=== PATIENT | male | born 1945 | race Asian ===

== ENCOUNTER 2017-07-29 01:32 | Emergency (ER) | payer OTHER ==
[2017-07-29 01:55] VITALS: BP 109/70; PULSE 72; TEMP 97.6; BMI 28.7
--- NOTE | 2017-07-29 01:58 | PDOC ---
History of Present Illness - General History Source: Patient, Family Exam Limitations: No Limitations - History of Present Illness Initial Comments: 07/29/17 02:11 Patient is a 72 year old male with pmhx of htn, DM (diet controlled) and recent dx of liver mass( he had staging done today 07/[address] guided biopsy MR) who presents today with neck pain and tightness since tonight. As per daughter the patient started complaining of tightness to the right side of the neck today, shooting like pain. His pain is exacerbated by taking deep breaths and positional movements. He notes mild alleviation with Tylenol. He was started on cipro/flagyl with his first dose being today. He recently returned from [facility] 2 weeks ago. He was evaluated in [facility] for 102 fever and was found to have a liver mass. As per daughter his WBC was 17. He denies any weakness, headache, radiation of the pain to the right arm, radiation of the pain to the back, visual changes, numbness or tingling. He is not on blood thinners All - A PCP - Dr. Hodgson [facility] - Kidney stone in 1999, Lithotripsy 2003 <Bianca Hunter - Last Filed: 07/29/17 03:40> <Swetha Cazares - Last Filed: 08/02/17 09:36> - General Chief Complaint: Headache Stated Complaint: NECK PAIN, BACK PAIN Time Seen by Provider: 07/29/17 01:53 Past History <Bianca Hunter - Last Filed: 07/29/17 03:40> - Past Medical History HTN: Yes Other medical history: Liver mass - Suicide/Smoking/Psychosocial Hx Smoking History: Former smoker Have you smoked in the past 12 months: No Information on smoking cessation initiated: No <Swetha Cazares - Last Filed: 08/02/17 09:36> - Past Medical History Allergies/Adverse Reactions: Allergies Allergy/AdvReac Type Severity Reaction Status Date / Time No Known Allergies Allergy Verified 07/29/17 01:55 Home Medications: Ambulatory Orders Acetaminophen [Tylenol] 650 mg PO 07/29/17 Atenolol [Tenormin] 25 mg PO DAILY 07/29/17 Ciprofloxacin HCl [Cipro] 500 mg PO ASDIR 07/29/17 Flagyl - 500 mg PO ASDIR 07/29/17 Oxycodone HCl [Oxycodone HCl ER] 10 mg PO BID #6 tab.er.12h MDD 2 07/29/17 Review of Systems - Review of Systems Able to Perform ROS?: Yes Comments:: 07/29/17 02:12 CONSTITUTIONAL: Absent: fever, chills, diaphoresis, generalized weakness, malaise, loss of appetite HEENT: Absent: rhinorrhea, nasal congestion, throat pain, throat swelling, difficulty swallowing, mouth swelling, ear pain, eye pain, visual Changes CARDIOVASCULAR: Absent: chest pain, syncope, palpitations, irregular heart rate, lightheadedness , peripheral edema RESPIRATORY: Absent: cough, shortness of breath, dyspnea with exertion, orthopnea, wheezing, stridor, hemoptysis GASTROINTESTINAL: Absent: abdominal pain, abdominal distension, nausea, vomiting, diarrhea, constipation, melena, hematochezia GENITOURINARY: Absent: dysuria, frequency, urgency, hesitancy, hematuria, flank pain, genital pain MUSCULOSKELETAL: Present: right sided neck pain Absent: joint swelling SKIN: Absent: rash, itching, pallor HEMATOLOGIC/IMMUNOLOGIC: Absent: easy bleeding, easy bruising, lymphadenopathy, frequent infections ENDOCRINE: Absent: unexplained weight gain, unexplained weight loss, heat intolerance, cold intolerance NEUROLOGIC: Absent: headache, focal weakness or paresthesias, dizziness, unsteady gait, seizure, mental status changes, bladder or bowel incontinence PSYCHIATRIC: Absent: anxiety, depression, suicidal or homicidal ideation, hallucinations. <Bianca Hunter - Last Filed: 07/29/17 03:40> *Physical Exam - Vital Signs Last Vital Signs Temp Pulse Resp BP Pulse Ox 97.6 F 72 18 109/70 95 07/29/17 01:47 07/29/17 01:47 07/29/17 01:47 07/29/17 01:47 07/29/17 01:47 - Physical Exam Comments: 07/29/17 02:14 GENERAL: Well developed, well nourished. Awake and alert. No acute distress. HEENT: Normocephalic, atraumatic. PERRLA, EOMI. No conjunctival pallor. Sclera are non- icteric. Moist mucous membranes. Oropharynx is clear. NECK: Supple. Full ROM. No JVD. Carotid pulses 2+ and symmetric, without bruits. No thyromegaly. No lymphadenopathy. CARDIOVASCULAR: Regular rate and rhythm. No murmurs, rubs, or gallops. Distal pulses are 2+ and symmetric. PULMONARY: No evidence of respiratory distress. Lungs clear to auscultation bilaterally. No wheezing, rales or rhonchi. ABDOMINAL: +Right tenderness of RUQ, slightly diffusely tender abdomen Soft. Non-distended. No rebound or guarding. No organomegaly. Normoactive bowel sounds. MUSCULOSKELETAL +Right sided neck pain. Normal range of motion at all joints. No bony deformities. No CVA tenderness. EXTREMITIES: No cyanosis. No clubbing. No edema. No calf tenderness. SKIN: Warm and dry. Normal capillary refill. No rashes. No jaundice. NEUROLOGICAL: Alert, awake, appropriate. Cranial nerves 2-12 intact. No deficits to light touch and temperature in face, upper extremities and lower extremities. No motor deficits in the in face, upper extremities and lower extremities. Normoreflexic in the upper and lower extremities. Normal speech. Toes are down-going bilaterally. PSYCHIATRIC: Cooperative. Good eye contact. Appropriate mood and affect. <Bianca Hunter - Last Filed: 07/29/17 03:40> - Vital Signs Last Vital Signs Temp Pulse Resp BP Pulse Ox 97.6 F 72 18 109/70 95 07/29/17 01:47 07/29/17 01:47 07/29/17 01:47 07/29/17 01:47 07/29/17 01:47 <Swetha Cazares - Last Filed: 08/02/17 09:36> ED Treatment Course - LABORATORY CBC & Chemistry Diagram: 07/29/17 02:32 07/29/17 02:32 <Bianca Hunter - Last Filed: 07/29/17 03:40> - LABORATORY CBC & Chemistry Diagram: 07/29/17 02:32 07/29/17 02:32 <Swetha Cazares - Last Filed: 08/02/17 09:36> Medical Decision Making - Medical Decision Making 07/29/17 03:40 THIS IS A PRELIMINARY REPORT FROM [facility] EXAM: CT HEAD without contrast IMAGES: 390 EXAM DATE AND TIME: 2017-07-29 03:12:32 REASON FOR EXAM: Occipital headache COMPARISON: None. FINDINGS: The ventricular system is midline and nondilated. The sulcal pattern is normal for the patient's age. There is no bleed, mass, extra-axial fluid collection or mass effect. No skull fracture or skull lesion is identified. Right maxillary and sphenoid sinuses are nearly completely opacified with dense atrial suggesting a fungal or allergic sinusitis. The visualized mastoid air cells are clear. IMPRESSION No acute intracranial pathology. Suspected fungal or allergic right maxillary and sphenoid sinusitis. THIS DOCUMENT HAS BEEN ELECTRONICALLY SIGNED Cade Cloud MD <Bianca Hunter - Last Filed: 07/29/17 03:40> - Medical Decision Making 07/29/17 01:58 72-year-old male who had staging of liver mass with CT guided MR biopsy at [facility]. . Today, brought in by ambulance this evening for his severe right- sided neck pain. Then after 1 hour in ER he had s.o occipital headache 07/29/17 03:24 PMH HTN 07/29/17 05:13 ct [place] head no acute intracranial pathology I recommended a ct scan if abd/pel to evaluate for bleeding but the pt and family saiid that a POST PROCEDURE CT SCAN WAS already done today -I told them I was also concerned about a possible vertebral dissection and wanted a neck CTA which they refused <Swetha Cazares - Last Filed: 08/02/17 09:36> *DC/Admit/Observation/Transfer - Attestations Scribe Attestion: 07/29/17 02:15 Documentation prepared by FANNY Rhodes, acting as medical assisting program director for Swetha Cazares MD. <Bianca Hunter - Last Filed: 07/29/17 03:40> <Swetha Cazares - Last Filed: 08/02/17 09:36> Diagnosis at time of Disposition: Neck pain - Discharge Dispostion Disposition: HOME Condition at time of disposition: Stable - Prescriptions Prescriptions: Oxycodone HCl [Oxycodone HCl ER] 10 mg PO BID #6 tab.er.12h MDD 2 - Referrals Referrals: Leeanna Elkins MD [Primary Care Provider] - - Patient Instructions Printed Discharge Instructions: DI for Neck Pain Additional Instructions: RETURN TO THE ER IMMEDIATELY FOR WORSENING PAIN, OR IF YOU DEVELOP WEAKNESS, NUMBNESS, SEVERE HEADACHE, OR ANY OTHER CONCERNS. FOLLOW UP WITH YOUR PRIMARY CARE PHYSICIAN SOON POSSIBLE.
[2017-07-29] MEDS ORDERED: oxyCODONE HCL 5 MG TABLET PO ONE (02:14)
[2017-07-29] MEDS ORDERED: oxyCODONE HCL 5 MG TABLET ONE (02:28)
[2017-07-29 02:38] LABS: BASOPHIL 0.4 % (0-2.0); EOSINOPHIL 0.1 % (0-4.5); MCH 31.8 pg (25.7-33.7); MCHC 33.8 g/dl (32.0-35.9); MEAN CELL VOLUME 93.9 fl (80-96); MEAN PLT VOLUME 8.5 fl (7.5-11.1); NEUTROPHILS 89.5 % (42.8-82.8); PLATELET COUNT 202 K/MM3 (134-434); RDW 15.4 % (11.9-15.9); WHITE BLOOD COUNT 18.8 K/mm3 (4.0-10.0)
[2017-07-29 03:14] LABS: ALK PHOS 154 U/L (45-117); ANION GAP 9 (8-16); BILIRUBIN,TOTAL 0.7 mg/dL (0.2-1.0); CALCIUM 8.5 mg/dL (8.5-10.1); CO2 25 mmol/L (21-32); CREATININE 0.8 mg/dL (0.7-1.3); GLUCOSE,RANDOM 147 mg/dL (74-106); SGPT/ALT 24 U/L (12-78)
[2017-07-29 03:15] LABS: SGOT/AST 45 U/L (15-37)
--- NOTE | 2017-07-29 05:19 | PDOC ---
*Physical Exam - Vital Signs Last Vital Signs Temp Pulse Resp BP Pulse Ox 97.6 F 72 18 109/70 95 07/29/17 01:47 07/29/17 01:47 07/29/17 01:47 07/29/17 01:47 07/29/17 01:47 ED Treatment Course - LABORATORY CBC & Chemistry Diagram: 07/29/17 02:32 07/29/17 02:32 - ADDITIONAL ORDERS Additional order review: Laboratory Results 07/29/17 02:32 Sodium 131 L Potassium 4.0 Chloride 97 L Carbon Dioxide 25 Anion Gap 9 BUN 12 Creatinine 0.8 Creat Clearance w eGFR > 60 Random Glucose 147 H Calcium 8.5 Total Bilirubin 0.7 AST 45 H ALT 24 Alkaline Phosphatase 154 H Total Protein 7.0 Albumin 3.0 L 07/29/17 02:32 RBC 3.93 L MCV 93.9 MCHC 33.8 RDW 15.4 MPV 8.5 Neutrophils % 89.5 H Lymphocytes % 5.0 L Monocytes % 5.0 Eosinophils % 0.1 Basophils % 0.4 - Medications Given in the ED: ED Medications Discontinued Medications Generic Name Dose Route Start Last Admin Trade Name Javidq PRN Reason Stop Dose Admin Oxycodone HCl 10 mg 07/29/17 02:14 07/29/17 02:35 Roxicodone - PO 07/29/17 02:15 10 mg ONCE ONE Administration *DC/Admit/Observation/Transfer Diagnosis at time of Disposition: Neck pain - Discharge Dispostion Disposition: HOME Condition at time of disposition: Stable Admit: No - Prescriptions Prescriptions: Oxycodone HCl [Oxycodone HCl ER] 10 mg PO BID #6 tab.er.12h MDD 2 - Referrals Referrals: Leeanna Elkins MD [Primary Care Provider] - - Patient Instructions Printed Discharge Instructions: DI for Neck Pain Additional Instructions: RETURN TO THE ER IMMEDIATELY FOR WORSENING PAIN, OR IF YOU DEVELOP WEAKNESS, NUMBNESS, SEVERE HEADACHE, OR ANY OTHER CONCERNS. FOLLOW UP WITH YOUR PRIMARY CARE PHYSICIAN SOON POSSIBLE. - Post Discharge Activity
[2017-07-29] MEDS ORDERED: morphine CARPU-JECT 2 MG/1 ML DISP.SYRIN IM ONE (05:28)
[2017-07-29] MEDS ORDERED: morphine CARPU-JECT 2 MG/1 ML DISP.SYRIN ONE (05:30)
--- NOTE | 2017-08-06 14:19 | EKG ---
Test Reason : Blood Pressure : / mmHG Vent. Rate : 070 BPM Atrial Rate : 070 BPM P-R Int : 150 ms QRS Dur : 082 ms QT Int : 414 ms P-R-T Axes : 042 -30 035 degrees QTc Int : 447 ms NORMAL SINUS RHYTHM LEFT AXIS DEVIATION ABNORMAL ECG WHEN COMPARED WITH ECG OF 06-JAN-2000 16:42, NO SIGNIFICANT CHANGE WAS FOUND Confirmed by PATRICIA FISH MD ([id number]) on 08/06/2017 2:19:26 PM Referred By: Confirmed By:PATRICIA FISH MD
== END 2017-07-29 05:35 | disposition home or self-care (01) ==
LOC: JER 01:32
PROC: 3E023NZ Introduction of Analgesics, Hypnotics, Sedatives into Muscle, Percutaneous Approach (ICD-10-PCS; principal; 2017-07-29)
DX: I10 Essential (primary) hypertension (principal); E11.9 Type 2 diabetes mellitus without complications; Z87.891 Personal history of nicotine dependence
CPT/HCPCS: 36415; 70450-TC; 80053; 85025; 93005; 93010; 99281-25

== ENCOUNTER 2017-11-29 20:03 | Inpatient (IN) | payer OTHER, MEDICARE ==
[2017-11-29] MEDS ORDERED: SODIUM CHLORIDE 1,000 ML IV STA (20:25)
--- NOTE | 2017-11-29 20:25 | PDOC ---
History of Present Illness - General History Source: Patient, Family Exam Limitations: No Limitations - History of Present Illness Initial Comments: 11/29/17 21:28 The patient is a 72 year old male with a significant past medical history of Cholangiocarcinoma (on bi weekly chemotherapy, last treatment on 11/27/17), HTN and DM who presents to the ED with complaints of abdominal pain and diarrhea for several days. The patient was diagnosed with C-diff and was given flagyl 10 days ago. Patient was then switched to vancomycin PO on Thursday. Patient had an Abdominal and Pelvic CT with contrast yesterday that showed no small bowel obstruction. Since the CT, the patient reports worsening intermittent generalized abdominal pain. He also reports multiple episodes of loose watery stool. Patient also reports a decrease in PO intake associated with present symptoms. Denies melena or hematochezia. Denies nausea or vomiting. Denies chest pain or shortness of breath. Denies dysuria or change in urinary output. Denies any other symptoms. PCP: Dr. Elkins Oncology: Dr. Hong <Sylvia Mcnamara - Last Filed: 11/29/17 23:33> <Swetha Cazares - Last Filed: 11/30/17 02:35> <Elizabeth Hale - Last Filed: 12/02/17 15:13> - General Chief Complaint: Pain, Acute Stated Complaint: EVALUATION Time Seen by Provider: 11/29/17 20:17 Past History <Sylvia Mcnamara - Last Filed: 11/29/17 23:33> - Past Medical History Cancer: Yes COPD: No HTN: Yes Other medical history: C-diff - Surgical History Abdominal Surgery: Yes - Suicide/Smoking/Psychosocial Hx Smoking History: Never smoked Have you smoked in the past 12 months: No Information on smoking cessation initiated: No Hx Alcohol Use: No Drug/Substance Use Hx: No Substance Use Type: None <Swetha Cazares - Last Filed: 11/30/17 02:35> <Elizabeth Hale - Last Filed: 12/02/17 15:13> - Past Medical History Allergies/Adverse Reactions: Allergies Allergy/AdvReac Type Severity Reaction Status Date / Time No Known Allergies Allergy Verified 11/29/17 20:17 Home Medications: Ambulatory Orders Atenolol [Tenormin] 25 mg PO DAILY 07/29/17 Oxycodone HCl [Oxycodone HCl ER] 10 mg PO BID #6 tab.er.12h MDD 2 07/29/17 Pantoprazole Sodium [Protonix] 40 mg PO DAILY 11/29/17 Sodium Chloride [Sodium Chloride 0.9% 1000 ml Infus.bag] 1,000 ml IV ONCE #1 infus.bag 11/30/17 Review of Systems - Review of Systems Able to Perform ROS?: Yes Comments:: 11/29/17 21:28 CONSTITUTIONAL: + decreased PO intake Absent: fever, chills, diaphoresis, generalized weakness, malaise, loss of appetite HEENT: Absent: rhinorrhea, nasal congestion, throat pain, throat swelling, difficulty swallowing, mouth swelling, ear pain, eye pain, visual Changes CARDIOVASCULAR: Absent: chest pain, syncope, palpitations, irregular heart rate, lightheadedness , peripheral edema RESPIRATORY: Absent: cough, shortness of breath, dyspnea with exertion, orthopnea, wheezing, stridor, hemoptysis GASTROINTESTINAL: + abdominal pain, diarrhea Absent: abdominal distension, nausea, vomiting, constipation, melena, hematochezia GENITOURINARY: Absent: dysuria, frequency, urgency, hesitancy, hematuria, flank pain, genital pain MUSCULOSKELETAL: Absent: myalgia, arthralgia, joint swelling SKIN: Absent: rash, itching, pallor HEMATOLOGIC/IMMUNOLOGIC: Absent: easy bleeding, easy bruising, lymphadenopathy, frequent infections ENDOCRINE: Absent: unexplained weight gain, unexplained weight loss, heat intolerance, cold intolerance NEUROLOGIC: Absent: headache, focal weakness or paresthesias, dizziness, unsteady gait, seizure, mental status changes, bladder or bowel incontinence PSYCHIATRIC: Absent: anxiety, depression, suicidal or homicidal ideation, hallucinations. All Other Systems: Reviewed and Negative <Sylvia Mcnamara - Last Filed: 11/29/17 23:33> *Physical Exam - Vital Signs Last Vital Signs Temp Pulse Resp BP Pulse Ox 98.6 F 112 H 20 117/78 98 11/29/17 20:11 11/29/17 20:11 11/29/17 20:11 11/29/17 20:11 11/29/17 20:11 - Physical Exam Comments: 11/29/17 21:28 GENERAL: Well developed, well nourished. Awake and alert. No acute distress. HEENT:+ dry mucous membranes Normocephalic, atraumatic. PERRLA, EOMI. No conjunctival pallor. Sclera are non- icteric. Oropharynx is clear. NECK: Supple. Full ROM. No JVD. Carotid pulses 2+ and symmetric, without bruits. No thyromegaly. NCo lymphadenopathy. CARDIOVASCULAR: + tachycardic Regular rhythm. No murmurs, rubs, or gallops. Distal pulses are 2+ and symmetric. PULMONARY: No evidence of respiratory distress. Lungs clear to auscultation bilaterally. No wheezing, rales or rhonchi. ABDOMINAL:+ slightly turbulent belly, with diffuse tenderness, bloating Soft. No rebound or guarding. No organomegaly. Normoactive bowel sounds. MUSCULOSKELETAL Normal range of motion at all joints. No bony deformities or tenderness. No CVA tenderness. EXTREMITIES: No cyanosis. No clubbing. No edema. No calf tenderness. SKIN: Warm and dry. Normal capillary refill. No rashes. No jaundice. NEUROLOGICAL: Alert, awake, appropriate. Cranial nerves 2-12 intact. No deficits to light touch and temperature in face, upper extremities and lower extremities. No motor deficits in the in face, upper extremities and lower extremities. Normoreflexic in the upper and lower extremities. Normal speech. Toes are down- going bilaterally. Gait is normal without ataxia. PSYCHIATRIC: Cooperative. Good eye contact. Appropriate mood and affect. <Sylvia Mcnamara - Last Filed: 11/29/17 23:33> - Vital Signs Last Vital Signs Temp Pulse Resp BP Pulse Ox 98.6 F 112 H 20 117/78 98 11/29/17 20:11 11/29/17 20:11 11/29/17 20:11 11/29/17 20:11 11/29/17 20:11 <Swetha Cazares - Last Filed: 11/30/17 02:35> - Vital Signs Last Vital Signs Temp Pulse Resp BP Pulse Ox 98.6 F 112 H 20 117/78 98 11/29/17 20:11 11/29/17 20:11 11/29/17 20:11 11/29/17 20:11 11/29/17 20:11 <Elizabeth Hale - Last Filed: 12/02/17 15:13> ED Treatment Course - LABORATORY CBC & Chemistry Diagram: 11/29/17 22:36 11/29/17 22:14 - Medications Given in the ED: ED Medications Discontinued Medications Generic Name Dose Route Start Last Admin Trade Name Freq PRN Reason Stop Dose Admin Hydromorphone HCl 0.5 mg 11/29/17 21:13 11/29/17 21:14 Dilaudid Injection - IVPUSH 11/29/17 21:14 0.5 mg NOW ONE Administration Sodium Chloride 1,000 mls @ 1,000 mls/hr 11/29/17 20:25 11/29/17 21:13 Normal Saline - IV 11/29/17 21:24 1,000 mls/hr ASDIR STA Administration <Sylvia Mcnamara - Last Filed: 11/29/17 23:33> - LABORATORY CBC & Chemistry Diagram: 11/29/17 22:36 11/29/17 22:14 <Swetha Cazares - Last Filed: 11/30/17 02:35> - LABORATORY CBC & Chemistry Diagram: 12/02/17 06:00 12/02/17 06:00 - ADDITIONAL ORDERS Additional order review: Laboratory Results 11/29/17 22:14 Sodium 133 L Potassium 4.9 D Chloride 101 Carbon Dioxide 23 Anion Gap 9 BUN 6 L D Creatinine 0.5 L D Creat Clearance w eGFR > 60 Random Glucose 110 H D Calcium 7.2 L Total Bilirubin 1.2 H D AST 89 H D ALT 39 D Alkaline Phosphatase 156 H Total Protein 6.2 L Albumin 2.3 L D Lipase 894 H 11/29/17 21:45 Influenza Types A,B Antigen (CLARIBEL) - Final Nasopharyngeal Swab - Final 11/29/17 22:36 RBC 3.92 L MCV 93.3 MCHC 33.0 RDW 22.4 H D MPV 7.9 Neutrophils % 64.7 D Lymphocytes % 28.7 D Monocytes % 3.9 Eosinophils % 2.1 D Basophils % 0.6 - Medications Given in the ED: ED Medications Discontinued Medications Generic Name Dose Route Start Last Admin Trade Name Freq PRN Reason Stop Dose Admin Hydromorphone HCl 0.5 mg 11/29/17 21:13 11/29/17 21:14 Dilaudid Injection - IVPUSH 11/29/17 21:14 0.5 mg NOW ONE Administration Hydromorphone HCl 2 mg 11/30/17 06:30 11/30/17 06:40 Dilaudid Injection - IVPUSH 11/30/17 06:31 2 mg ONCE ONE Administration Sodium Chloride 1,000 mls @ 1,000 mls/hr 11/29/17 20:25 11/29/17 21:13 Normal Saline - IV 11/29/17 21:24 1,000 mls/hr ASDIR STA Administration Sodium Chloride 1,000 ml 11/30/17 06:42 11/30/17 06:44 Normal Saline - IV 11/30/17 06:43 1,000 ml NOW ONE Administration <Elizabeth Hale - Last Filed: 12/02/17 15:13> Medical Decision Making - Medical Decision Making 11/29/17 23:28 Case discussed with the covering fellow for Dr. Hong at 23:20. 11/29/17 23:[address] Elkins at 23:33. <Sylvia Mcnamara - Last Filed: 11/29/17 23:33> - Medical Decision Making 11/30/17 02:35 72-year-old male who is being treated for cholangiocarcinoma has [facility] brought in by family because of increased stooling. Past medical history significant for C. difficile colitis and had been treated with Flagyl with poor results so last Thursday he was placed on vancomycin -He had his chemotherapy on Thursday He had CAT scan of the abdomen and pelvis with and without contrast yesterday. I spoke to the fellow covering for and a CAT scan was read by the radiologist is as long as being consistent with colitis. There is no evidence of small bowel obstruction, no abscesses and no free air and no pancreatitis I spoke to the patient's PCP and the plan is to observe the pt and repeat his lab work at . -if he has increasing pain or worsening stools .he can be admitted If he has no worsening symptoms ,he will be discharged and follow up with his specialist at [facility] <Swetha Cazares - Last Filed: 11/30/17 02:35> - Medical Decision Making 12/02/17 15:12 Case d/w Dr. Hodgson and she is in agreement that pt should remain in the hospital for admission, as he continues with intractable pain and he remains tachycardic despite IV hydration. Pt will be given a dose of pain meds and repeat saline hydration. He is in for consults with hematology as well. <Elizabeth Hale - Last Filed: 12/02/17 15:13> *DC/Admit/Observation/Transfer - Attestations Scribe Attestion: 11/29/17 21:28 Documentation prepared by Sylvia Mcnamara, acting as medical records coder for Swetha Cazares MD <Sylvia Mcnamara - Last Filed: 11/29/17 23:33> - Discharge Dispostion Admit: Yes <Swetha Cazares - Last Filed: 11/30/17 02:35> - Discharge Dispostion Admit: Yes <Elizabeth Hale - Last Filed: 12/02/17 15:13> Diagnosis at time of Disposition: Colitis, Cholangiocarcinoma, Diarrhea, Dehydration
[2017-11-29] MEDS ORDERED: HYDROmorphone HCL CARPU-JECT 2 MG/1 ML DISP.SYRIN ONE (21:01)
[2017-11-29] MEDS ORDERED: HYDROmorphone HCL CARPU-JECT 1 MG/1 ML DISP.SYRIN IVPUSH ONE (21:13)
[2017-11-29 22:44] LABS: ALBUMIN 2.3 g/dl (3.4-5.0); ANION GAP 9 (8-16); BILIRUBIN,TOTAL 1.2 mg/dL (0.2-1.0); BLOOD UREA NITROGEN 6 mg/dL (7-18); CALCIUM 7.2 mg/dL (8.5-10.1); CHLORIDE 101 mmol/L (98-107); CO2 23 mmol/L (21-32); CREATININE 0.5 mg/dL (0.7-1.3); GLUCOSE,RANDOM 110 mg/dL (74-106); SGPT/ALT 39 U/L (12-78); SODIUM 133 mmol/L (136-145); TOT PROT 6.2 g/dl (6.4-8.2)
[2017-11-29 22:45] LABS: ALK PHOS 156 U/L (45-117); LIPASE 894 U/L (73-393)
[2017-11-29 22:46] LABS: POTASSIUM 4.9 mmol/L (3.5-5.1); SGOT/AST 89 U/L (15-37)
[2017-11-29 22:48] LABS: BASO % 0.6 % (0-2.0); EOS % 2.1 % (0-4.5); HEMATOCRIT 36.6 % (35.4-49); HEMOGLOBIN 12.1 GM/dL (11.7-16.9); LYMPH % 28.7 % (8-40); MCH 30.8 pg (25.7-33.7); MEAN CELL VOLUME 93.3 fl (80-96); MEAN PLT VOLUME 7.9 fl (7.5-11.1); MONO % 3.9 % (3.8-10.2); NEUT % 64.7 % (42.8-82.8); PLATELET COUNT 239 K/MM3 (134-434); RBC 3.92 M/mm3 (4.00-5.60); RDW 22.4 % (11.9-15.9)
[2017-11-29 22:51] LABS: ADD RBC MORPHOLOGY YES
[2017-11-29 23:22] LABS: ANISOCYTOSIS 2+; OVALOCYTE FEW; PLATELET ESTIMATE ADEQUATE
[2017-11-30] MEDS ORDERED: HYDROmorphone HCL CARPU-JECT 2 MG/1 ML DISP.SYRIN ONE ×2 (06:28→10:51)
[2017-11-30] MEDS ORDERED: HYDROmorphone HCL CARPU-JECT 2 MG/1 ML DISP.SYRIN IVPUSH ONE (06:30)
[2017-11-30] MEDS ORDERED: SODIUM CHLORIDE 0.9% 1000 ML INFUS.BAG IV ONE (06:42)
[2017-11-30 08:10] LABS: URINE APPEARANCE CLEAR; URINE BILIRUBIN NEGATIVE (NEGATIVE); URINE BLOOD NEGATIVE (NEGATIVE); URINE COLOR YELLOW; URINE GLUCOSE (UA) NEGATIVE (NEGATIVE); URINE KETONE NEGATIVE (NEGATIVE); URINE LEUK ESTERASE NEGATIVE (NEGATIVE); URINE NITRITE NEGATIVE (NEGATIVE); URINE PROTEIN NEGATIVE (NEGATIVE); URINE UROBILINOGEN NEGATIVE mg/dL (0.2-1.0)
[2017-11-30 08:14] LABS: BASO % 0.5 % (0-2.0); EOS % 3.4 % (0-4.5); HEMATOCRIT 34.1 % (35.4-49); HEMOGLOBIN 11.1 GM/dL (11.7-16.9); LYMPH % 29.8 % (8-40); MCH 30.6 pg (25.7-33.7); MCHC 32.6 g/dl (32.0-35.9); MEAN CELL VOLUME 93.8 fl (80-96); MEAN PLT VOLUME 7.9 fl (7.5-11.1); MONO % 6.8 % (3.8-10.2); NEUT % 59.5 % (42.8-82.8); PLATELET COUNT 230 K/MM3 (134-434); RBC 3.63 M/mm3 (4.00-5.60); RDW 23.2 % (11.9-15.9); WHITE BLOOD COUNT 3.2 K/mm3 (4.0-10.0)
[2017-11-30 08:27] LABS: ANION GAP 6 (8-16); BLOOD UREA NITROGEN 5 mg/dL (7-18); CALCIUM 7.2 mg/dL (8.5-10.1); CHLORIDE 103 mmol/L (98-107); CO2 27 mmol/L (21-32); CREATININE 0.4 mg/dL (0.7-1.3); GLUCOSE,RANDOM 90 mg/dL (74-106); POTASSIUM 4.4 mmol/L (3.5-5.1); SGOT/AST 44 U/L (15-37); SGPT/ALT 30 U/L (12-78); SODIUM 136 mmol/L (136-145)
[2017-11-30 08:29] LABS: ALK PHOS 123 U/L (45-117); BILIRUBIN,TOTAL 1.2 mg/dL (0.2-1.0); TOT PROT 5.2 g/dl (6.4-8.2)
[2017-11-30] MEDS ORDERED: SODIUM CHLORIDE 1,000 ML IV STA (10:03)
--- NOTE | 2017-11-30 10:03 | PN ---
Progress Note, Physician Chief Complaint: Pt lying in bed pain improved diarrhoea improved GI consult pending - Current Medication List Current Medications: Active Medications Atenolol (Tenormin -) 25 mg PO DAILY DULCE MARIA Vancomycin HCl (Vancomycin Oral Solution) 125 mg PO Q6HPO DULCE MARIA - Objective Vital Signs: Vital Signs Temperature 98.8 F 11/30/17 06:00 Pulse Rate 128 H 11/30/17 06:00 Respiratory Rate 18 11/30/17 06:00 Blood Pressure 116/84 11/30/17 06:00 O2 Sat by Pulse Oximetry (%) 98 11/30/17 06:00 Constitutional: Yes: No Distress Eyes: Yes: Conjunctiva Clear HENT: Yes: Normocephalic Neck: Yes: Supple Cardiovascular: Yes: Regular Rate and Rhythm Respiratory: Yes: Regular, CTA Bilaterally Gastrointestinal: Yes: Normal Bowel Sounds, Distention Genitourinary: Yes: WNL Musculoskeletal: Yes: WNL Extremities: Yes: WNL Edema: No Peripheral Pulses WNL: Yes Neurological: Yes: WNL, Alert ...Motor Strength: WNL Psychiatric: Yes: WNL Labs: CBC, BMP 11/30/17 07:42 11/30/17 07:42 - ....Imaging Chest X-ray: Report Reviewed Assessment/Plan Colitis,abdominal pain C diff positive Cholangiocarcinoma on CT HTN PLAN Continue vancomycin Continue IV fluid and pain meds GI cosult pending Monitor CBC
[2017-11-30] MEDS: ATENOLOL 25 MG TABLET (FP) PO SCH ×2 (10:38→10:49)
[2017-11-30] MEDS ORDERED: ATENOLOL 25 MG TABLET (FP) ONE (10:38)
[2017-11-30] MEDS: HYDROmorphone HCL CARPU-JECT 2 MG/1 ML DISP.SYRIN IVPUSH PRN (10:52)
--- NOTE | 2017-11-30 11:29 | HP ---
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 The patient was diagnosed with Clostridium difficile and was given Flagyl 10 days ago. The patient was then switched to vancomycin p.o. on Thursday. The patient had abdominopelvic CT with contrast yesterday and showed no small bowel obstruction. Since CT, the patient reports worsening intermittent generalized abdominal pain. He also reports multiple episodes of loose, watery stool. The patient does report the decreased p.o. intake associated with the symptoms. The patient denies any melena or hematochezia. Denies nausea or vomiting. No chest pain, no shortness of breath, no dysuria, no changes in urinary output. PAST MEDICAL HISTORY: Significant for cholangiocarcinoma, hypertension. PAST SURGICAL HISTORY: The patient had abdominal surgery and had his gallbladder removed. MEDICATIONS: The patient is on atenolol 25 mg p.o. daily, Oxycodone Hydrochloride 10 mg p.o. b.i.d. Protonix 40 mg p.o. daily, and IV fluid. ALLERGIES: No known drug allergies. SOCIAL HISTORY: Lives with the family. Never smoked. No history of alcohol. No drug history. REVIEW OF SYSTEMS: Constitutional: The patient had decreased p.o. intake. General Symptoms: No fever, no chills, no generalized weakness. Head and Neck: No nasal congestion. No throat pain. Cardiovascular: No chest pain, no syncope, no palpitations. Gastrointestinal: Abdominal pain and diarrhea. Renal: No urinary symptoms. Musculoskeletal: No myalgias or arthralgias. Hematologic: No easy bruising or easy bleeding. Neurologic: No headache, no focal weakness or paresthesias. Psychiatric: No anxiety, no depression. PHYSICAL EXAMINATION: Vital Signs: Patient's emergency room temperature 98.6, pulse 112, respirations 28, blood pressure 117/78, pulse 98 per minute. General: Patient well developed, well nourished, awake, alert in no acute distress. HEENT: Slight dehydration. Normocephalic. Pupils equal, round, and reactive to light. Extraocular movements normal. No jaundice. No scleral icterus. Head normal. Neck: Normal. Supple. No JVD. Cardiovascular: Tachycardia present. First and second sound normal. No murmur. Abdomen: Slight tenderness, diffuse tenderness and bloating present. No rebound tenderness, guarding, or rigidity. No mass palpable. Scar on the left side of the abdomen in the midline. Musculoskeletal: Full range of movement. Skin: Warm and dry. Neurologic: Awake and alert. Cranial nerves 2-12 normal. No motor or sensory deficit. Normal speech. Gait is normal. Psychiatric: The patient is cooperative. LABORATORIES: WBC 3, hemoglobin 12.1, hematocrit 36.6, platelets 239. Sodium 133, potassium 4.9, chloride 101, bicarbonate 23, BUN 6, creatinine 0.5. Sugar 110, calcium 7.2, alkaline phosphatase 156. AST 89, ALT 39, total protein 6.2, lipase 8.94. Influenza screening negative. Chest x-ray normal. The patient was given IV fluid and morphine in the ER. Dilaudid injection in the ER. In summary, this is a 72-year-old male with a history of cholangiocarcinoma treatment getting from [facility] and is on chemotherapy. Patient diagnosed with Clostridium difficile colitis and has been treated with Flagyl with poor results so switched to vancomycin. Patient had last chemotherapy on Thursday. Had CAT scan of the abdomen and pelvis with and without contrast done on Thursday. According to the ER note, the CAT scan results were discussed with the covering fellow at [facility], and the diagnosis was colitis, but there was no evidence of any small bowel obstruction. No abscess, no free air, no pancreatitis. The patient was kept for observation with the diagnosis of colitis. Vancomycin 125 mg p.o., started IV fluid, and home medications resumed. GI consult called. PCPC ordered. Patient stable. NADJA HADLEY M.D. /[id number]
[2017-11-30 11:38] LABS: MAGNESIUM 1.3 mg/dL (1.8-2.4)
[2017-11-30] MEDS: VANCOMYCIN 250 MG/5 ML ORAL SOLUTION PO SCH ×4 (12:06→23:58)
--- NOTE | 2017-11-30 13:02 | EKG ---
Test Reason : Blood Pressure : / mmHG Vent. Rate : 109 BPM Atrial Rate : 109 BPM P-R Int : 186 ms QRS Dur : 080 ms QT Int : 324 ms P-R-T Axes : 043 -34 057 degrees QTc Int : 436 ms SINUS TACHYCARDIA LEFT AXIS DEVIATION ABNORMAL ECG WHEN COMPARED WITH ECG OF 29-JUL-2017 01:51, VENT. RATE HAS INCREASED BY 39 BPM Confirmed by HERMINIA AREVALO MD ([id number]) on 11/30/2017 1:02:20 PM Referred By: Confirmed By:HERMINIA AREVALO MD
--- NOTE | 2017-11-30 13:49 | CON.GI ---
Consult Consult Specialty:: GI: Dr. Mitchell for Dr. Fung Referred by:: Dr. Elkins Reason for Consultation:: Diarrhea - History of Present Illness Chief Complaint: I have been having diarrhea History of Present Illness: 72M admitted through [facility] for evaluation of diarrhea. Per family ( and daughter) Mr. Garcia has been having diarrhea for three weeks described as watery and 1-2 BM's in AM and 1-2 BM's at night. There was no associated rectal bleeding or blood diarrhea. His daughter, who is a PA at [employer], ordered stool C. Diff (toxin positive per daughter) and he was given Rx w/ flagyl for 14 days. The diarrhea persisted, however and never really improved. He was started on PO vanco by oncologist 11/25. Diarrhea persisted but stool became more formed. He had a CT scan of the C/A/P at [facility] this past thursday per his daughter and afterwards he developed midline abdominal pain. CT scan reports are not available here for review as this was performed at [facility]. His daughter explains that it showed "colitis". Mr. Garcia has a history of cholangiocarcinoma and is being treated with ? direct chemo to the tumor via implanted pump plus IV chemotherapy. he received IV chemotherapy 11/27. Prior to this episode of diarrhea there has been no chronic GI complaints. he had a colonoscopy in [address] Fung that was "OK". per his . There is no family history of IBD or colon cancer. He currently denies abdominal pain and stool is becoming more formed. - History Source History Provided By: Patient - Past Medical History Cardio/Vascular: Yes: HTN Gastrointestinal: Yes: Cancer (Cholangiocarcinoma) - Past Surgical History Additional Surgical History: Placement of an abdominal wall chemo pump - Alcohol/Substance Use Hx Alcohol Use: No History of Substance Use: reports: None - Smoking History Smoking history: Never smoked Have you smoked in the past 12 months: No - Social History Usual Living Arrangement: With Spouse ADL: Independent Occupation: Disabled Place of : Other ([place]) History of Recent Travel: No Home Medications - Allergies Allergies/Adverse Reactions: Allergies Allergy/AdvReac Type Severity Reaction Status Date / Time No Known Allergies Allergy Verified 11/29/17 20:17 - Home Medications Home Medications: Ambulatory Orders Atenolol [Tenormin] 25 mg PO DAILY 07/29/17 Oxycodone HCl [Oxycodone HCl ER] 10 mg PO BID #6 tab.er.12h MDD 2 07/29/17 Pantoprazole Sodium [Protonix] 40 mg PO DAILY 11/29/17 Sodium Chloride [Sodium Chloride 0.9% 1000 ml Infus.bag] 1,000 ml IV ONCE #1 infus.bag 11/30/17 Family Disease History - Family Disease History Family Disease History: Other: Father ( 86: Dementia, porostate ca), Mother (: 99), Brother (: lung ca), Sister (: BCA), Son (1, healthy), Daughter (2, healthy) Review of Systems - Review of Systems Constitutional: reports: Fever (100.7 described by ). denies: Chills Cardiovascular: denies: Chest Pain, Shortness of Breath Respiratory: denies: Cough Gastrointestinal: reports: Abdominal Pain (resolved). denies: Bloating, Nausea , Rectal Bleeding, Vomiting Physical Exam-GI Vital Signs: Vital Signs Temperature 97.6 F 11/30/17 13:30 Pulse Rate 116 11/30/17 13:30 Respiratory Rate 16 11/30/17 13:30 Blood Pressure 147/85 11/30/17 13:30 O2 Sat by Pulse Oximetry (%) 100% RA 11/30/17 13:30 Constitutional: No: Calm Eyes: No: Sclera Icterus Cardiovascular: Yes: Tachycardia (regular rhythm) Respiratory: Yes: CTA Bilaterally Gastrointestinal Inspection: No: Distention ...Auscultate: Yes: Normoactive Bowel Sounds ...Palpate: No: Guarding, Hepatomegaly, Splenomegaly, Tenderness, Tenderness, Rebound ...Percussion: No: Tympanitic Edema: No (No LE edema) Neurological: Yes: Alert, Oriented Labs: CBC, BMP 11/30/17 07:42 11/30/17 07:42 Hepatic Panel Total Bilirubin 1.2 mg/dL (0.2-1.0) H 11/30/17 07:42 AST 44 U/L (15-37) H D 11/30/17 07:42 ALT 30 U/L (12-78) D 11/30/17 07:42 Alkaline Phosphatase 123 U/L (45-117) H D 11/30/17 07:42 Albumin 2.0 g/dl (3.4-5.0) L 11/30/17 07:42 Laboratory Tests 11/29/17 22:14 Lipase 894 H Problem List - Problems (1) Diarrhea Assessment/Plan: 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 Diff toxin + specimen sent from [facility] when diarrhea began to persist Clinically improved by description of more formed / less frequent BM's Advise: Continuing Vanco PO 125mg PO q 6 hrs Would not add probiotic in Mr. Garcia's case given his immunocompromised status Would avoid PPI therapy given its association w/ increased risk of CDAD. Protonix was on his home meds His oncologist's office was called to obtain reports from recent CT scan of the C/A/P. Awaiting fax Consider ID evaluation If worsening abdominal pain, diarrhea, repeat CT scan of the abdomen and pelvis with PO contrast Full liquid diet Code(s): R19.7 - DIARRHEA, UNSPECIFIED (2) Tachycardia Assessment/Plan: Advised Mr. Garcia's nurse Jordan Jason regarding this finding so that PMD can be made aware NS @ 125 cc/hr started Code(s): R00.0 - TACHYCARDIA, UNSPECIFIED (3) Cholangiocarcinoma Assessment/Plan: Being treated at [facility] Awaiting CT scan C/A/P report If rising LFTs consistent with obstructive pattern, consider transfer to [facility] for further evaluation Code(s): C22.1 - INTRAHEPATIC BILE DUCT CARCINOMA
[2017-11-30] MEDS ORDERED: ACETAMINOPHEN 325 MG TABLET (FP) PO ONE (14:56)
[2017-11-30] MEDS ORDERED: ACETAMINOPHEN 325 MG TABLET (FP) ONE (14:57)
--- NOTE | 2017-11-30 15:51 | PN ---
Progress Note (short form) - Note Progress Note: CT scan report obtained from Dr. Hong's office. It was a Oral and IV contrast study C/A/P from 11/28/17. decreased size in intrahepatic mass 12.7cm x 7.3cm w/ decreased compression of the portal veins and encasement of the middle hepatic lobe. also with persistent small tumoral thrombus invading left median superior branch of let. portal vein. no biliary ductla dilatation and patient s/ p cholecystectomy. Also, no mention of colitis although new wall thickening of the terminal ileum with surrounding fat stranding. The left abdominal wall hepatic arterial infusion pump seems to be a hepatic arterial infusion pump. C. Diff still in differential however inflammatory process with ? involvement of ileum. Stool culture, O&P Being evaluated by ID given temp spike to 101 Problem List - Problems (1) Diarrhea Code(s): R19.7 - DIARRHEA, UNSPECIFIED (2) Tachycardia Code(s): R00.0 - TACHYCARDIA, UNSPECIFIED (3) Cholangiocarcinoma Code(s): C22.1 - INTRAHEPATIC BILE DUCT CARCINOMA
[2017-11-30 16:05] VITALS: BMI 26.9
--- NOTE | 2017-11-30 16:41 | PN ---
Progress Note (short form) - Note Progress Note: Had d/w Dr. Rahman re: repeating CT scan in setting of fever spike and upper abdominal pain to assess for alternate etiologies of abdominal pain (given the reading of the [facility] CT scan that did not describe an obvious colitis). Had d/w family re: repeat CT scan. Advised that PO and IV contrast would give us a clearer picture of the bowel as well as solid organs / portal vein thrombus. They would like to discuss this as a family and come up with a decision. They were concerned re: obtaining IV access. There is now discussion of transfer to [facility] under care of her oncologist Problem List - Problems (1) Diarrhea Code(s): R19.7 - DIARRHEA, UNSPECIFIED (2) Tachycardia Code(s): R00.0 - TACHYCARDIA, UNSPECIFIED (3) Cholangiocarcinoma Code(s): C22.1 - INTRAHEPATIC BILE DUCT CARCINOMA
--- NOTE | 2017-11-30 16:44 | CON.ID ---
Consult Consult Specialty:: infectious disease Referred by:: dr david - History of Present Illness Chief Complaint: abdominal pain History of Present Illness: 72 year old man with cholangiocarcinoma diagnosed in fall 2016, s/p cholycystecomy and pump placement Sep 07 at [place]. He is getting monthly infusions via the pump and biweekly infusions via the port 3 weeks ago he developed watery nonbloody diarrhea- his daughter checked his stools which were positive of cdiff toxin and he took flagyl for 10 days 11/15 to 11/25- he was switched to po vancomycin at that point on Thursday he had his biweekly chemotherapy, on Thursday he went for ct scan of the abd /pelvis and developed watery diarrhea and cramps after the procedure he felt very weak he had no appetite he had a one time temp of 100.1 no cough/no sore throat/no uri symptoms no sick contacts no nausea or vomiting, no dysuria no chest pain he developed pain in the midepigastric/subxiphoid area and cramps along with the diarrhea and came to the ed yesterday today he had fever to 101 wth tachycardia- no chills or rigors, his diarrhea today has markedly improved but his midepigastric discomfort persists of note he was treated with levaquin for 2 weeks in September after his gall bladder surgery he normally has 3 formed bms daily- now 4-5 loose watery ones he was not taking any pain meds but since Thursday has been taking oxycodone for abdominal cramps and pain - History Source History Provided By: Patient, Significant Other, Medical Record Limitations to Obtaining History: No Limitations - Past Medical History Cardio/Vascular: Yes: HTN Gastrointestinal: Yes: Cancer (Cholangiocarcinoma) - Past Surgical History Past Surgical History: Yes: Cholecystectomy (pump placement at time of cholycystectomy) Additional Surgical History: Placement of an abdominal wall chemo pump - Alcohol/Substance Use Hx Alcohol Use: No History of Substance Use: reports: None - Smoking History Smoking history: Never smoked Have you smoked in the past 12 months: No - Social History Usual Living Arrangement: With Spouse ADL: Independent Occupation: Disabled Place of : Other ([place]) Came to [place] (year): 1988 History of Recent Travel: No Home Medications - Allergies Allergies/Adverse Reactions: Allergies Allergy/AdvReac Type Severity Reaction Status Date / Time No Known Allergies Allergy Verified 11/29/17 20:17 - Home Medications Home Medications: Ambulatory Orders Atenolol [Tenormin] 25 mg PO DAILY 07/29/17 Oxycodone HCl [Oxycodone HCl ER] 10 mg PO BID #6 tab.er.12h MDD 2 07/29/17 Pantoprazole Sodium [Protonix] 40 mg PO DAILY 11/29/17 Sodium Chloride [Sodium Chloride 0.9% 1000 ml Infus.bag] 1,000 ml IV ONCE #1 infus.bag 11/30/17 Family Disease History - Family Disease History Family Disease History: Other: Father ( 86: Dementia, porostate ca), Mother (: 99), Brother (: lung ca), Sister (: BCA), Son (1, healthy), Daughter (2, healthy) Review of Systems - Review of Systems Constitutional: reports: Weakness Eyes: reports: No Symptoms HENT: reports: No Symptoms. denies: Difficult Swallowing, Throat Pain Neck: reports: No Symptoms Cardiovascular: reports: No Symptoms. denies: Chest Pain Respiratory: reports: No Symptoms. denies: Cough, SOB Gastrointestinal: reports: Abdominal Pain, Diarrhea. denies: Nausea, Rectal Bleeding, Vomiting, Vomiting Blood Genitourinary: reports: No Symptoms. denies: Burning, Discharge, Dysuria, Flank Pain Musculoskeletal: reports: No Symptoms Integumentary: reports: No Symptoms Neurological: reports: No Symptoms Endocrine: reports: No Symptoms Physical Exam Vital Signs: Vital Signs Temperature 101.0 F H 11/30/17 14:38 Pulse Rate 122 H 11/30/17 14:21 Respiratory Rate 16 11/30/17 14:21 Blood Pressure 116/66 11/30/17 14:21 O2 Sat by Pulse Oximetry (%) 98 11/30/17 14:21 Constitutional: Yes: No Distress, Calm, Thin Eyes: Yes: Conjunctiva Clear HENT: Yes: Atraumatic, Normocephalic. No: Pharyngeal Erythema, Rhinnorhea, Thrush, Tonsillar Exudate Neck: Yes: Supple, Trachea Midline. No: Lymphadenopathy Cardiovascular: Yes: Regular Rate and Rhythm, Tachycardia Respiratory: Yes: Regular, CTA Bilaterally Gastrointestinal: Yes: Normal Bowel Sounds, Soft, Abdomen, Obese, Hyperactive Bowel Sounds, Tenderness, Epigastrium, Other (+mass (pump) LLQ) ...Rectal Exam: Yes: Deferred Renal/: Yes: WNL. No: CVA Tenderness - Left, CVA Tenderness - Right, Hinson Present Musculoskeletal: Yes: WNL Extremities: Yes: WNL Edema: No Labs: CBC, BMP 11/30/17 07:42 11/30/17 07:42 ANC 1900 influenza negative blood cultures pending cdiff pending UA negative Imaging - Results Chest X-ray: Report Reviewed, Image Reviewed Problem List - Problems (1) Fever Code(s): R50.9 - FEVER, UNSPECIFIED (2) Colitis Code(s): K52.9 - NONINFECTIVE GASTROENTERITIS AND COLITIS, UNSPECIFIED (3) Cholangiocarcinoma Code(s): C22.1 - INTRAHEPATIC BILE DUCT CARCINOMA Assessment/Plan 72 year old man with cholangiocarcinoma s/p chemo on Thursday with abdominal pain and fever he has a history of recent cdiff-treated with po flagyl and then po vancomycin suspect his diarrhea Thursday may have been due to oral contrast as it has markedly improved today source of fever is unclear-he is not neutropenic ANC is 1900 UA is negative and he has no pulmonary complaints abdominal pain is new would obtain blood cultures and start broad spectrum antibiotics given his tachycardia-vancomycin and zosyn concern for GI source would repeat ct of abd/pelvis- this was discussed with GI, the family and the PMD would continue aggressive iv fluids would continue treatment for cdiff with po vancomycin interestingly ct scan report from Thursday does not refer to vasquez colitis- there are inflammatory changes in the terminal ileum, decreased intrahepatic cholangiocarcinoma and unchanged tumor thrombus would send stools for culture, WC, ova and parasites as well
[2017-11-30] MEDS ORDERED: PIPERACILLIN/TAZOB 3.375 GM/50 ML PRE-DOCKED IVPB SCH (16:45)
[2017-11-30] MEDS ORDERED: VANCOMYCIN 1,000 MG in DEXTROSE 5%-WATER - 250 ML IVPB ONE (17:47)
[2017-11-30] MEDS ORDERED: VANCOMYCIN 1,000 MG in DEXTROSE 5%-WATER - 250 ML IVPB SCH (18:00)
[2017-11-30] MEDS ORDERED: PT OWN MED DRAWER 7, Y5N ONE (20:53)
[2017-11-30] MEDS: PIPERACILLIN/TAZOB 3.375 GM 3.375 GM in DEXTROSE 5%-WATER - 100 ML IVPB SCH (21:19)
[2017-12-01] MEDS: PIPERACILLIN/TAZOB 3.375 GM 3.375 GM in DEXTROSE 5%-WATER - 100 ML IVPB SCH ×3 (02:20→18:04)
[2017-12-01 09:03] LABS: MAGNESIUM 1.5 mg/dL (1.8-2.4)
--- NOTE | 2017-12-01 09:59 | PN ---
Progress Note, Physician Chief Complaint: pt sitting in bed,afebrile pain improved,no vomiting ID and Gi consult appreciated diarrhoea improved - Current Medication List Current Medications: Active Medications Atenolol (Tenormin -) 25 mg PO DAILY [facility] Last Admin: 11/30/17 10:49 Dose: Not Given Hydromorphone HCl (Dilaudid Injection -) 1 mg IVPUSH Q6H PRN PRN Reason: PAIN Last Admin: 11/30/17 10:52 Dose: 1 mg Piperacillin Sod/Tazobactam (Sod 3.375 gm/ Dextrose) 100 mls @ 200 mls/hr IVPB Q8H-IV DULCE MARIA Last Admin: 12/01/17 02:20 Dose: 200 mls/hr Vancomycin HCl (Vancomycin Oral Solution) 125 mg PO Q6HPO DULCE MARIA Last Admin: 11/30/17 23:58 Dose: 125 mg - Objective Vital Signs: Vital Signs Temperature 98.3 F 12/01/17 02:00 Pulse Rate 97 H 12/01/17 02:00 Respiratory Rate 20 12/01/17 02:00 Blood Pressure 125/78 12/01/17 02:00 O2 Sat by Pulse Oximetry (%) 97 11/30/17 21:47 Constitutional: Yes: No Distress Eyes: Yes: Conjunctiva Clear HENT: Yes: Atraumatic, Normocephalic Neck: Yes: Supple, Trachea Midline Cardiovascular: Yes: Regular Rate and Rhythm Respiratory: Yes: Regular, CTA Bilaterally Gastrointestinal: Yes: Normal Bowel Sounds, Soft, Distention Musculoskeletal: Yes: WNL Extremities: Yes: WNL Edema: No Peripheral Pulses WNL: Yes Neurological: Yes: WNL Psychiatric: Yes: WNL Labs: CBC, BMP 11/30/17 07:42 11/30/17 07:42 - ....Imaging Ultrasound: Pending Assessment/Plan Colitis,abdominal pain C diff positive Cholangiocarcinoma on CT HTN PLAN Continue vancomycin and zozyn Continue IV fluid and pain meds GI f/u and ID f/u Monitor CBC and CMP
[2017-12-01] MEDS ORDERED: MAGNESIUM OXIDE 400 MG TABLET (FP) PO ONE (10:15)
[2017-12-01 10:17] LABS: HEMATOCRIT 33.1 % (35.4-49); HEMOGLOBIN 10.7 GM/dL (11.7-16.9); MCH 30.4 pg (25.7-33.7); MCHC 32.5 g/dl (32.0-35.9); MEAN CELL VOLUME 93.6 fl (80-96); MEAN PLT VOLUME 8.1 fl (7.5-11.1); PLATELET COUNT 236 K/MM3 (134-434); RBC 3.53 M/mm3 (4.00-5.60); RDW 22.5 % (11.9-15.9)
[2017-12-01] MEDS: VANCOMYCIN 250 MG/5 ML ORAL SOLUTION PO SCH ×3 (10:33→18:04)
[2017-12-01] MEDS: ATENOLOL 25 MG TABLET (FP) PO SCH (10:34)
[2017-12-01 12:08] LABS: ALBUMIN 2.1 g/dl (3.4-5.0); ANION GAP 7 (8-16); BILIRUBIN,TOTAL 0.7 mg/dL (0.2-1.0); BLOOD UREA NITROGEN 5 mg/dL (7-18); CALCIUM 7.3 mg/dL (8.5-10.1); CHLORIDE 104 mmol/L (98-107); CO2 27 mmol/L (21-32); CREATININE 0.4 mg/dL (0.7-1.3); GLUCOSE,RANDOM 90 mg/dL (74-106); POTASSIUM 3.5 mmol/L (3.5-5.1); SGOT/AST 47 U/L (15-37); SGPT/ALT 30 U/L (12-78); SODIUM 138 mmol/L (136-145); TOT PROT 5.1 g/dl (6.4-8.2)
[2017-12-01 12:09] LABS: ALK PHOS 111 U/L (45-117)
--- NOTE | 2017-12-01 12:24 | PN ---
Progress Note (short form) - Note Progress Note: was not transferred last night did not have Ct Scan yesterday- abdominal pain improved no fever today still with loose BMS no pain meds since 08/30 Vital Signs Period Temp Pulse Resp BP Sys/Forman Pulse Ox Last 24 Hr 97.9 F-101.0 F 95-122 16-22 105-125/65-78 97-98 cor-rrr lungs clear abd +BS, soft, minimal mid epigastric tenderness ext no edema CBC, BMP 12/01/17 08:00 diff pending chem pending cdiff negative blood cultures pending a/p fever has resolved now neutropenic c diff colitis cholangiocarcinoma s/p chemo on Thursday continue zosyn continue po vancomycin oncology consult ?is transfer still in progress d/w PMD Dr Elkins d/w family at bedside Problem List - Problems (1) Fever Code(s): R50.9 - FEVER, UNSPECIFIED (2) Colitis Code(s): K52.9 - NONINFECTIVE GASTROENTERITIS AND COLITIS, UNSPECIFIED (3) Cholangiocarcinoma Code(s): C22.1 - INTRAHEPATIC BILE DUCT CARCINOMA
[2017-12-01 12:28] LABS: ANISOCYTOSIS 2+; MACROCYTOSIS 1+; PLATELET ESTIMATE NORMAL; TEAR DROP CELLS 1+
--- NOTE | 2017-12-01 13:03 | CONSULT ---
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 Tx: s/p surgery on every other week [place]/ox ( last on 11/27 ) Also on tumor directed therapy via pump, 5FU based Oncology consulted for Neutropenia Pt seen and examined. continues to have diarrhea - History Source History Provided By: Patient, Family Member, Medical Record - Past Medical History Cardio/Vascular: Yes: HTN Gastrointestinal: Yes: Cancer (Cholangiocarcinoma) - Past Surgical History Past Surgical History: Yes: Cholecystectomy (pump placement at time of cholycystectomy) Additional Surgical History: Placement of an abdominal wall chemo pump - Alcohol/Substance Use Hx Alcohol Use: No History of Substance Use: reports: None - Smoking History Smoking history: Never smoked Have you smoked in the past 12 months: No - Social History Usual Living Arrangement: With Spouse ADL: Independent Occupation: Disabled History of Recent Travel: No Home Medications - Allergies Allergies/Adverse Reactions: Allergies Allergy/AdvReac Type Severity Reaction Status Date / Time No Known Allergies Allergy Verified 11/29/17 20:17 - Home Medications Home Medications: Ambulatory Orders Atenolol [Tenormin] 25 mg PO DAILY 07/29/17 Oxycodone HCl [Oxycodone HCl ER] 10 mg PO BID #6 tab.er.12h MDD 2 07/29/17 Pantoprazole Sodium [Protonix] 40 mg PO DAILY 11/29/17 Sodium Chloride [Sodium Chloride 0.9% 1000 ml Infus.bag] 1,000 ml IV ONCE #1 infus.bag 11/30/17 Family Disease History - Family Disease History Family Disease History: Other: Father ( 86: Dementia, porostate ca), Mother (: 99), Brother (: lung ca), Sister (: BCA), Son (1, healthy), Daughter (2, healthy) Review of Systems - Review of Systems Constitutional: reports: Chills, Fever, Loss of Appetite HENT: denies: Difficult Swallowing Neck: denies: Lumps, Pain on Movement Cardiovascular: denies: Chest Pain, Edema, Palpitations, Shortness of Breath Respiratory: denies: Cough, Exercise Intolerance, Hemoptysis Gastrointestinal: reports: Diarrhea. denies: Abdominal Pain, Indigestion, Melena, Nausea, Rectal Bleeding, Vomiting Neurological: reports: No Symptoms Physical Exam Vital Signs: Vital Signs Temperature 98.3 F 12/01/17 02:00 Pulse Rate 97 H 12/01/17 02:00 Respiratory Rate 20 12/01/17 02:00 Blood Pressure 125/78 12/01/17 02:00 O2 Sat by Pulse Oximetry (%) 97 11/30/17 21:47 Constitutional: Yes: No Distress, Calm Eyes: Yes: Conjunctiva Clear, EOM Intact HENT: Yes: Atraumatic, Normocephalic Neck: Yes: Supple, Trachea Midline Cardiovascular: Yes: Tachycardia Respiratory: Yes: Regular, CTA Bilaterally Gastrointestinal: Yes: Normal Bowel Sounds, Soft, Abdomen, Obese Extremities: Yes: WNL Edema: No Labs: CBC, BMP 12/01/17 08:00 12/01/17 08:00 Imaging - Results Cat Scan: Report Reviewed Ultrasound: Report Reviewed Problem List - Problems (1) Cholangiocarcinoma Code(s): C22.1 - INTRAHEPATIC BILE DUCT CARCINOMA (2) Colitis Code(s): K52.9 - NONINFECTIVE GASTROENTERITIS AND COLITIS, UNSPECIFIED (3) Dehydration Code(s): E86.0 - DEHYDRATION (4) Tachycardia Code(s): R00.0 - TACHYCARDIA, UNSPECIFIED (5) Neutropenia Code(s): D70.9 - NEUTROPENIA, UNSPECIFIED (6) Neutropenia Code(s): D70.9 - NEUTROPENIA, UNSPECIFIED Qualifiers: Neutropenia type: secondary to cancer chemotherapy Qualified Code(s): D70.1 - Agranulocytosis secondary to cancer chemotherapy; T45.1X5A - Adverse effect of antineoplastic and immunosuppressive drugs, initial encounter; T45.1X5A - Adverse effect of antineoplastic and immunosuppressive drugs, initial encounter Assessment/Plan Neutropenic sepsis: Last chemo with gem/ox on 11/27. Daughter confirmed that he did not get Neulasta now ANC of 167. Pt spiking to 101. ?source d/w ID, changed abx as per recommendations Discussed in detail with the ( in the pm) and daughter (in the am) about how granix could decrease the "duration" of neutropenia though no change in mortality with GCSF administration. Discussed risks too. Initially they did not want to give, but later agreed. Therefore, granix ordered for daily recommend repeating CT scan. IVF f.u cultures cholangiocarcinoma: gemox every other week and gets 5FU based via a pump follows at [facility] [place] ( mostly in [place] and some at [facility]) daughter mentioned that the oncologists are aware of his admission. will follow closely d/w ID. d/w RN in detail.
[2017-12-01] MEDS: HYDROmorphone HCL CARPU-JECT 2 MG/1 ML DISP.SYRIN IVPUSH PRN ×2 (13:19→22:01)
[2017-12-01] MEDS ORDERED: ACETAMINOPHEN 325 MG TABLET (FP) ONE (18:10)
[2017-12-01] MEDS ORDERED: CEFEPIME HCL 2 GM VIAL (RESTRICTED TO ID) IVPB SCH (18:15)
[2017-12-01] MEDS ORDERED: ACETAMINOPHEN 325 MG TABLET (FP) PO PRN (18:17)
[2017-12-01] MEDS ORDERED: CEFEPIME 2 GM in DEXTROSE 5%-WATER - 100 ML IVPB SCH (18:30)
--- NOTE | 2017-12-01 19:21 | PN ---
GI Progress Note Subjective: GI NOte: Had diarrhea this AM but has subsided since her got Dilaudid after lunch and ate some rice from home. He denies pain or nausea at present but has no interest in food. C diff has reverted to negative but is now neutropenic and spiking fever. I have discussed the case with Dr Rahman and Dr Juarez and agree with the antibiotic choices and neupogen.. - Objective Vital Signs: Vital Signs Temperature 101.5 F H 12/01/17 18:21 Pulse Rate 116 H 12/01/17 18:21 Respiratory Rate 18 12/01/17 18:21 Blood Pressure 123/76 12/01/17 18:21 O2 Sat by Pulse Oximetry (%) 97 12/01/17 10:00 Laboratory Tests 11/29/17 12/01/17 12/01/17 22:36 08:00 08:00 WBC 3.0 L D 1.0 L* D Hgb 12.1 10.7 L Total Bilirubin 0.7 D AST 47 H ALT 30 Alkaline Phosphatase 111 Constitutional: Anxious Gastrointestinal Inspection: Yes: Distention ...Auscultate: Yes: Normoactive Bowel Sounds ...Palpate: Yes: Soft, Other (nontender) ...Percussion: Yes: Tympanitic Labs: CBC, BMP 12/01/17 08:00 12/01/17 08:00 Problem List - Problems (1) Diarrhea Assessment/Plan: C diff colitis appears resolved but give persistence of diarrhea need to consider other etiologies including neutropenic colitis, medication related, ie gemzar, bowel wall edema with loss of integrity etc. He may alternatively have some impaction of feces with overflow. Will get FUA. Await fecal leucocytes. Code(s): R19.7 - DIARRHEA, UNSPECIFIED (2) Clostridium difficile colitis Code(s): A04.72 - ENTEROCOLITIS D/T CLOSTRIDIUM DIFFICILE, NOT SPCF RECUR
[2017-12-01] MEDS ORDERED: PT OWN MED DRAWER 7, Y5N ONE (20:20)
[2017-12-01] MEDS: TBO-FILGRASTIM 300 MCG/0.5 ML DISP.SYRINGE SQ SCH (20:31)
[2017-12-01] MEDS ORDERED: IBUPROFEN 400 MG TABLET (FP) PO ONE (21:00)
[2017-12-01] MEDS ORDERED: VANCOMYCIN 1,000 MG in DEXTROSE 5%-WATER - 250 ML IVPB ONE (21:12)
[2017-12-01] MEDS: PANTOPRAZOLE 40 MG TABLET (FP) PO SCH (23:17)
[2017-12-01] MEDS: SODIUM CHLORIDE 1,000 ML IV SCH (23:20)
[2017-12-02] MEDS ORDERED: PT OWN MED DRAWER 7, Y5N ONE ×3 (01:18→09:43)
[2017-12-02] MEDS: VANCOMYCIN 250 MG/5 ML ORAL SOLUTION PO SCH ×4 (01:32→17:27)
[2017-12-02] MEDS: PIPERACILLIN/TAZOB 4.5 GM 4.5 GM in DEXTROSE 5%-WATER - 100 ML IVPB SCH ×3 (03:30→17:27)
[2017-12-02 07:32] LABS: HEMATOCRIT 36.4 % (35.4-49); HEMOGLOBIN 11.8 GM/dL (11.7-16.9); MCH 30.5 pg (25.7-33.7); MCHC 32.5 g/dl (32.0-35.9); MEAN PLT VOLUME 7.5 fl (7.5-11.1); PLATELET COUNT 311 K/MM3 (134-434); RBC 3.88 M/mm3 (4.00-5.60); RDW 22.5 % (11.9-15.9); WHITE BLOOD COUNT 5.2 K/mm3 (4.0-10.0)
[2017-12-02 08:08] LABS: ALBUMIN 2.1 g/dl (3.4-5.0); ANION GAP 9 (8-16); BLOOD UREA NITROGEN 4 mg/dL (7-18); CALCIUM 7.8 mg/dL (8.5-10.1); CHLORIDE 100 mmol/L (98-107); CO2 28 mmol/L (21-32); GLUCOSE,RANDOM 94 mg/dL (74-106); MAGNESIUM 1.7 mg/dL (1.8-2.4); POTASSIUM 4.2 mmol/L (3.5-5.1); SODIUM 137 mmol/L (136-145)
[2017-12-02 08:13] LABS: ALK PHOS 111 U/L (45-117); CREATININE 0.7 mg/dL (0.7-1.3); SGOT/AST 43 U/L (15-37); SGPT/ALT 31 U/L (12-78); TOT PROT 5.7 g/dl (6.4-8.2)
[2017-12-02] MEDS: SODIUM CHLORIDE 1,000 ML IV SCH ×2 (08:13→21:50)
--- NOTE | 2017-12-02 08:54 | PN ---
Progress Note (short form) - Note Progress Note: febrile to 103.5 overnight-shivering abdominal cramps- one dose of dilaudid given 3 loose bms brown, no odor overnight ate oatmeal this am no fever no abdominal pain Vital Signs Period Temp Pulse Resp BP Sys/Forman Pulse Ox Last 24 Hr 97.8 F-103.2 F 76-116 18-20 98-132/56-76 97-97 cor-rrr lungs clear abd soft, pump noted- nontender +BS ext no edema CBC, BMP 12/02/17 06:00 diff pending chemistry pending Microbiology 11/30/17 15:02 Blood - Peripheral Venous Blood Culture - Preliminary NO GROWTH OBTAINED AFTER 24 HOURS, INCUBATION TO CONTINUE FOR 4 DAYS. 11/30/17 15:02 Blood - Peripheral Venous Blood Culture - Preliminary NO GROWTH OBTAINED AFTER 24 HOURS, INCUBATION TO CONTINUE FOR 4 DAYS. 11/29/17 10:45 Stool Clostridium difficile Antigen (CLARIBEL) - Final 11/29/17 10:45 Stool Clostridium difficile Toxin Assay - Final 11/29/17 21:45 Nasopharyngeal Swab Influenza Types A,B Antigen (CLARIBEL) - Final 11/29/17 21:45 Nasopharyngeal Swab - Final a/p fever with neutropenia yesterday, wbc improved today-blood cultures repeated recent c diff colitis- would continue po vanco/iv flagyl at this time, f/u abd xray, f/u stool studies, ?need for abdominal ct cholangiocarcinoma s/p chemo on Thursday continue zosyn continue po vancomycin/iv flagyl d/w patient and at bedside Problem List - Problems (1) Fever Code(s): R50.9 - FEVER, UNSPECIFIED (2) Colitis Code(s): K52.9 - NONINFECTIVE GASTROENTERITIS AND COLITIS, UNSPECIFIED (3) Cholangiocarcinoma Code(s): C22.1 - INTRAHEPATIC BILE DUCT CARCINOMA
--- NOTE | 2017-12-02 09:42 | PN ---
Progress Note (short form) - Note Progress Note: Patient seen and examined. Events noted Fevers noted. Last night d/w GI/ID. Given first dose of granix last evening. He feels tired , continues to have diarrhea O/E: Constitutional: Yes: No Distress, Calm Eyes: Yes: Conjunctiva Clear, EOM Intact HENT: Yes: Atraumatic, Normocephalic Neck: Yes: Supple, Trachea Midline Cardiovascular: Yes: Tachycardia Respiratory: Yes: Regular, CTA Bilaterally Gastrointestinal: Yes: Normal Bowel Sounds, Soft, Abdomen, Obese Extremities: Yes: WNL Edema: No Last Vital Signs Temp Pulse Resp BP Pulse Ox 98.1 F 81 20 98/64 97 12/02/17 06:00 12/02/17 06:00 12/02/17 06:00 12/02/17 06:00 12/02/17 02:00 CBC, BMP 12/02/17 06:00 12/02/17 06:00 Current Medications Generic Name Dose Route Start Last Admin Trade Name Freq PRN Reason Stop Dose Admin Acetaminophen 325 mg 12/01/17 18:17 Tylenol - PO Q6H PRN FEVER Atenolol 25 mg 11/30/17 10:00 12/01/17 10:34 Tenormin - PO 25 mg DAILY DULCE MARIA Administration Hydromorphone HCl 1 mg 11/30/17 10:07 12/01/17 22:01 Dilaudid Injection - IVPUSH 1 mg Q6H PRN Administration PAIN Metronidazole 500 mg in 100 mls @ 100 mls/hr 12/01/17 18:15 12/02/17 01:32 Flagyl 500mg Premixed Ivpb - IVPB 100 mls/hr Q8H-IV DULCE MARIA Administration Sodium Chloride 1,000 mls @ 83 mls/hr 12/01/17 18:30 12/02/17 08:13 Normal Saline - IV 83 mls/hr ASDIR DULCE MARIA Administration Piperacillin Sod/Tazobactam 100 mls @ 200 mls/hr 12/02/17 03:00 12/02/17 03: 30 Sod 4.5 gm/ Dextrose IVPB 200 mls/hr Q8H-IV DULCE MARIA Administration Pantoprazole Sodium 40 mg 12/02/17 10:00 Protonix - PO DAILY DULCE MARIA Pantoprazole Sodium 40 mg 12/01/17 22:45 12/01/17 23:17 Protonix - PO 40 mg DAILY DULCE MARIA Administration Tbo-Filgrastim 300 mcg 12/01/17 18:00 12/01/17 20:31 Granix - SQ 300 mcg DAILY DULCE MARIA Administration Vancomycin HCl 125 mg 11/30/17 12:00 12/02/17 06:18 Vancomycin Oral Solution PO 125 mg Q6HPO DULCE MARIA Administration Assessment/Plan: Neutropenic sepsis in the setting of [place]/Ox being received for Cholangiocarcinoma, follows at [facility] [place]. c/w Granix. abx per ID GI f/u noted anticipating transfer to [facility] [place] d/w PMD Problem List - Problems (1) Cholangiocarcinoma Code(s): C22.1 - INTRAHEPATIC BILE DUCT CARCINOMA (2) Colitis Code(s): K52.9 - NONINFECTIVE GASTROENTERITIS AND COLITIS, UNSPECIFIED (3) Dehydration Code(s): E86.0 - DEHYDRATION (4) Tachycardia Code(s): R00.0 - TACHYCARDIA, UNSPECIFIED (5) Neutropenia Code(s): D70.9 - NEUTROPENIA, UNSPECIFIED (6) Neutropenia Code(s): D70.9 - NEUTROPENIA, UNSPECIFIED Qualifiers: Neutropenia type: secondary to cancer chemotherapy Qualified Code(s): D70.1 - Agranulocytosis secondary to cancer chemotherapy; T45.1X5A - Adverse effect of antineoplastic and immunosuppressive drugs, initial encounter; T45.1X5A - Adverse effect of antineoplastic and immunosuppressive drugs, initial encounter
[2017-12-02] MEDS: TBO-FILGRASTIM 300 MCG/0.5 ML DISP.SYRINGE SQ SCH (09:46)
[2017-12-02] MEDS: ATENOLOL 25 MG TABLET (FP) PO SCH ×2 (09:47→10:14)
[2017-12-02] MEDS: PANTOPRAZOLE 40 MG TABLET (FP) PO SCH (09:47)
--- NOTE | 2017-12-02 09:54 | PN ---
Progress Note, Physician Chief Complaint: pt lying in bed,pt had fever last night,and pt was givenIv vanco in addition to flagyl and Zosyn and motrin.Afebrile now. WBC improved,pty had dirrhoea last night pain improved,no vomiting ID and Gi consult appreciated Pt is on neupogen Family wants to transfer the PT to [facility] for further treatment as per pt is getting CT from [place] - Current Medication List Current Medications: Active Medications Acetaminophen (Tylenol -) 325 mg PO Q6H PRN PRN Reason: FEVER Atenolol (Tenormin -) 25 mg PO DAILY [facility] Last Admin: 12/02/17 09:47 Dose: 25 mg Hydromorphone HCl (Dilaudid Injection -) 1 mg IVPUSH Q6H PRN PRN Reason: PAIN Last Admin: 12/01/17 22:01 Dose: 1 mg Metronidazole (Flagyl 500mg Premixed Ivpb -) 500 mg in 100 mls @ 100 mls/hr IVPB Q8H-IV [facility] Last Admin: 12/02/17 09:46 Dose: 100 mls/hr Sodium Chloride (Normal Saline -) 1,000 mls @ 83 mls/hr IV ASDIR [facility] Last Admin: 12/02/17 08:13 Dose: 83 mls/hr Piperacillin Sod/Tazobactam (Sod 4.5 gm/ Dextrose) 100 mls @ 200 mls/hr IVPB Q8H-IV DULCE MARIA Last Admin: 12/02/17 09:46 Dose: 200 mls/hr Pantoprazole Sodium (Protonix -) 40 mg PO DAILY [facility] Last Admin: 12/02/17 09:47 Dose: 40 mg Pantoprazole Sodium (Protonix -) 40 mg PO DAILY [facility] Last Admin: 12/02/17 09:47 Dose: Not Given Tbo-Filgrastim (Granix -) 300 mcg SQ DAILY [facility] Last Admin: 12/02/17 09:46 Dose: 300 mcg Vancomycin HCl (Vancomycin Oral Solution) 125 mg PO Q6HPO [facility] Last Admin: 12/02/17 06:18 Dose: 125 mg - Objective Vital Signs: Vital Signs Temperature 98.1 F 12/02/17 06:00 Pulse Rate 81 12/02/17 06:00 Respiratory Rate 20 12/02/17 06:00 Blood Pressure 98/64 12/02/17 06:00 O2 Sat by Pulse Oximetry (%) 97 12/02/17 02:00 Constitutional: Yes: No Distress Eyes: Yes: Conjunctiva Clear HENT: Yes: Atraumatic Neck: Yes: Supple, Trachea Midline Cardiovascular: Yes: Regular Rate and Rhythm Respiratory: Yes: Regular, CTA Bilaterally Gastrointestinal: Yes: Normal Bowel Sounds, Soft, Distention Musculoskeletal: Yes: WNL Extremities: Yes: WNL Edema: No Peripheral Pulses WNL: Yes Neurological: Yes: WNL, Alert ...Motor Strength: WNL Psychiatric: Yes: WNL Labs: CBC, BMP 12/02/17 06:00 12/02/17 06:00 Assessment/Plan neutropenia improved C diff colitis diarrhoea cholangiocarcinoma HTN PLAN Continue vancomycin and zozyn and flagyl Continue IV fluid and pain meds pt is on neupogen GI f/u and ID f/u Monitor CBC and CMP for abdominal x ray today ordered by gi
[2017-12-02] MEDS ORDERED: PANTOPRAZOLE 40 MG TABLET (FP) PO SCH (10:00)
[2017-12-02 11:40] LABS: ANISOCYTOSIS 2+; PLATELET ESTIMATE NORMAL
--- NOTE | 2017-12-02 15:05 | PN ---
GI Progress Note Subjective: Temp spike 103.2 last night 3 BMs today, one was watery, two were more formed AXR performed: some dilated loops of small bowel seen in right abdomen raising ? of ileus. Reading does say "shows sign of megacolon" however AXR images were reviewed. I do not see signs of a megacolon and think that it was a typo. - Objective Vital Signs: Vital Signs Temperature 98.3 F 12/02/17 14:42 Pulse Rate 88 12/02/17 14:42 Respiratory Rate 20 12/02/17 14:42 Blood Pressure 128/76 12/02/17 14:42 O2 Sat by Pulse Oximetry (%) 98 12/02/17 10:00 Constitutional: Calm Eyes: No: Sclera Icterus Cardiovascular: Yes: Regular Rate and Rhythm. No: Murmur Respiratory: Yes: CTA Bilaterally Gastrointestinal Inspection: Yes: Other (Pump in left abdomen). No: Distention ...Auscultate: Yes: Normoactive Bowel Sounds ...Palpate: No: Tenderness ...Percussion: No: Tympanitic Edema: No (No LE edema) Neurological: Yes: Alert Labs: CBC, BMP 12/02/17 06:00 12/02/17 06:00 Problem List - Problems (1) Diarrhea Assessment/Plan: Seems somewhat improved Abdominal pain improved Continuing PO Vanco D/C'd PPI neutropenic diet Code(s): R19.7 - DIARRHEA, UNSPECIFIED (2) Cholangiocarcinoma Assessment/Plan: S/P chemo. likely contributing to current GI complaints as well along with neutropenic fevers Onc following ? Xfer to [facility] in works Code(s): C22.1 - INTRAHEPATIC BILE DUCT CARCINOMA
--- NOTE | 2017-12-02 16:46 | PN ---
Progress Note (short form) - Note Progress Note: called by nurse. Family upset because protonix discontinued. Per nurse family was advised that he will need to stay on it for the rest of his life given the chemo that he is taking". It was discontinued on admission and today given recent C. 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 I gave the nurse my office number to give to Mr. Garcia's family and asked that they have the oncologist call me to discuss if there was absolute need for continued PPI therapy. Problem List - Problems (1) Diarrhea Code(s): R19.7 - DIARRHEA, UNSPECIFIED (2) Cholangiocarcinoma Code(s): C22.1 - INTRAHEPATIC BILE DUCT CARCINOMA
[2017-12-03] MEDS: PIPERACILLIN/TAZOB 4.5 GM 4.5 GM in DEXTROSE 5%-WATER - 100 ML IVPB SCH ×3 (01:46→17:00)
[2017-12-03] MEDS: VANCOMYCIN 250 MG/5 ML ORAL SOLUTION PO SCH ×4 (05:45→17:00)
[2017-12-03 07:42] LABS: HEMATOCRIT 33.6 % (35.4-49); HEMOGLOBIN 10.9 GM/dL (11.7-16.9); MCH 30.4 pg (25.7-33.7); MCHC 32.5 g/dl (32.0-35.9); MEAN CELL VOLUME 93.7 fl (80-96); MEAN PLT VOLUME 7.4 fl (7.5-11.1); PLATELET COUNT 245 K/MM3 (134-434); RBC 3.58 M/mm3 (4.00-5.60); RDW 22.3 % (11.9-15.9); WHITE BLOOD COUNT 14.8 K/mm3 (4.0-10.0)
[2017-12-03 08:38] LABS: ANION GAP 8 (8-16); CHLORIDE 107 mmol/L (98-107); CO2 27 mmol/L (21-32); POTASSIUM 3.9 mmol/L (3.5-5.1); SODIUM 142 mmol/L (136-145)
[2017-12-03 08:44] LABS: ALK PHOS 109 U/L (45-117); BILIRUBIN,TOTAL 0.6 mg/dL (0.2-1.0); BLOOD UREA NITROGEN 4 mg/dL (7-18); CALCIUM 7.5 mg/dL (8.5-10.1); CREATININE 0.7 mg/dL (0.7-1.3); GLUCOSE,RANDOM 79 mg/dL (74-106); MAGNESIUM 1.5 mg/dL (1.8-2.4); SGOT/AST 46 U/L (15-37); SGPT/ALT 31 U/L (12-78); TOT PROT 5.3 g/dl (6.4-8.2)
[2017-12-03] MEDS ORDERED: PT OWN MED DRAWER 7, Y5N ONE ×2 (09:45→16:57)
[2017-12-03] MEDS: TBO-FILGRASTIM 300 MCG/0.5 ML DISP.SYRINGE SQ SCH (09:47)
[2017-12-03] MEDS: ATENOLOL 25 MG TABLET (FP) PO SCH (09:47)
--- NOTE | 2017-12-03 09:53 | PN ---
Progress Note, Physician Chief Complaint: ID Abd pains have improved No fever since antibiotics started ON growth factor and WBC has come up Zosyn Metronidazole oral vanco - Current Medication List Current Medications: Active Medications Acetaminophen (Tylenol -) 325 mg PO Q6H PRN PRN Reason: FEVER Atenolol (Tenormin -) 25 mg PO DAILY [facility] Last Admin: 12/02/17 10:14 Dose: Not Given Hydromorphone HCl (Dilaudid Injection -) 1 mg IVPUSH Q6H PRN PRN Reason: PAIN Last Admin: 12/01/17 22:01 Dose: 1 mg Metronidazole (Flagyl 500mg Premixed Ivpb -) 500 mg in 100 mls @ 100 mls/hr IVPB Q8H-IV [facility] Last Admin: 12/03/17 01:46 Dose: 100 mls/hr Sodium Chloride (Normal Saline -) 1,000 mls @ 83 mls/hr IV ASDIR [facility] Last Admin: 12/02/17 21:50 Dose: 83 mls/hr Piperacillin Sod/Tazobactam (Sod 4.5 gm/ Dextrose) 100 mls @ 200 mls/hr IVPB Q8H-IV [facility] Last Admin: 12/03/17 01:46 Dose: 200 mls/hr Tbo-Filgrastim (Granix -) 300 mcg SQ DAILY [facility] Last Admin: 12/02/17 09:46 Dose: 300 mcg Vancomycin HCl (Vancomycin Oral Solution) 125 mg PO Q6HPO [facility] Last Admin: 12/03/17 05:45 Dose: 125 mg - Objective Vital Signs: Vital Signs Temperature 98.4 F 12/03/17 05:00 Pulse Rate 94 H 12/03/17 05:00 Respiratory Rate 20 12/03/17 05:00 Blood Pressure 118/70 12/03/17 05:00 O2 Sat by Pulse Oximetry (%) 98 12/02/17 21:00 Constitutional: Yes: No Distress HENT: No: Thrush Neck: Yes: WNL Cardiovascular: Yes: WNL, Regular Rate and Rhythm, S1, S2 Respiratory: Yes: WNL, Regular, CTA Bilaterally Gastrointestinal: Yes: WNL, Normal Bowel Sounds, Soft. No: Tenderness, Tenderness, Epigastrium Edema: No Labs: CBC, BMP 12/03/17 07:00 02/01/18 08:15 Assessment/Plan Microbiology 11/30/17 18:50 Stool Gram Stain - Final 11/30/17 18:50 Stool Vibrio Culture - Final NO GROWTH OF VIBRIO SPECIES OBTAINED 11/29/17 10:45 Stool Clostridium difficile Antigen (CLARIBEL) - Final 11/29/17 10:45 Stool Clostridium difficile Toxin Assay - Final 12/01/17 22:00 Blood - Peripheral Venous Blood Culture - Preliminary NO GROWTH OBTAINED AFTER 24 HOURS, INCUBATION TO CONTINUE FOR 4 DAYS. 12/01/17 21:45 Blood - Peripheral Venous Blood Culture - Preliminary NO GROWTH OBTAINED AFTER 24 HOURS, INCUBATION TO CONTINUE FOR 4 DAYS. 11/30/17 18:50 Stool Escherichia coli 0157 Culture - Preliminary Pending Organism Pending Organism NO ENTERIC PATHOGENS, 24 HOURS, ON PRIMARY PLATES 11/30/17 15:02 Blood - Peripheral Venous Blood Culture - Preliminary NO GROWTH OBTAINED AFTER 48 HOURS, INCUBATION TO CONTINUE FOR 3 DAYS. 11/30/17 15:02 Blood - Peripheral Venous Blood Culture - Preliminary NO GROWTH OBTAINED AFTER 48 HOURS, INCUBATION TO CONTINUE FOR 3 DAYS. Laboratory Tests 12/03/17 12/03/17 07:00 08:15 WBC 14.8 H D Hgb 10.9 L Hct 33.6 L Plt Count 245 D BUN 4 L Creatinine 0.7 AST 46 H ALT 31 Alkaline Phosphatase 109 Assessment Cholangiocarcioma post recent chemotherapy Febrile neutropenia now no longer neutropenic Zosyn started day 2 History of C difficile infection Plan Continue oral vancomcyin as ordered Will stop metronidazole As discussed with family would continue PIP TAZO for another 2" afebrile "days Perhaps discharge this thursday Enteric organism in stool not a primary pathogen ( Morganella) Paresh ARCOS
--- NOTE | 2017-12-03 09:58 | PN ---
Progress Note, Physician Chief Complaint: pt lyiing in bed afebrile,wbc 14.8 no diarrhoea no abdomimal pain X ray abd shows megacolon and focal ileus - Current Medication List Current Medications: Active Medications Acetaminophen (Tylenol -) 325 mg PO Q6H PRN PRN Reason: FEVER Atenolol (Tenormin -) 25 mg PO DAILY [facility] Last Admin: 12/02/17 10:14 Dose: Not Given Hydromorphone HCl (Dilaudid Injection -) 1 mg IVPUSH Q6H PRN PRN Reason: PAIN Last Admin: 12/01/17 22:01 Dose: 1 mg Metronidazole (Flagyl 500mg Premixed Ivpb -) 500 mg in 100 mls @ 100 mls/hr IVPB Q8H-IV [facility] Last Admin: 12/03/17 01:46 Dose: 100 mls/hr Sodium Chloride (Normal Saline -) 1,000 mls @ 83 mls/hr IV ASDIR [facility] Last Admin: 12/02/17 21:50 Dose: 83 mls/hr Piperacillin Sod/Tazobactam (Sod 4.5 gm/ Dextrose) 100 mls @ 200 mls/hr IVPB Q8H-IV [facility] Last Admin: 12/03/17 01:46 Dose: 200 mls/hr Tbo-Filgrastim (Granix -) 300 mcg SQ DAILY [facility] Last Admin: 12/02/17 09:46 Dose: 300 mcg Vancomycin HCl (Vancomycin Oral Solution) 125 mg PO Q6HPO [facility] Last Admin: 12/03/17 05:45 Dose: 125 mg - Objective Vital Signs: Vital Signs Temperature 98.4 F 12/03/17 05:00 Pulse Rate 94 H 12/03/17 05:00 Respiratory Rate 20 12/03/17 05:00 Blood Pressure 118/70 12/03/17 05:00 O2 Sat by Pulse Oximetry (%) 98 12/02/17 21:00 Constitutional: Yes: No Distress Eyes: Yes: Conjunctiva Clear HENT: Yes: Atraumatic Neck: Yes: Supple Cardiovascular: Yes: Regular Rate and Rhythm Respiratory: Yes: Regular, CTA Bilaterally Gastrointestinal: Yes: Normal Bowel Sounds, Soft, Distention Musculoskeletal: Yes: WNL Extremities: Yes: WNL Edema: No Peripheral Pulses WNL: Yes Neurological: Yes: WNL ...Motor Strength: WNL Psychiatric: Yes: WNL Labs: CBC, BMP 12/03/17 07:00 12/03/17 08:15 - ....Imaging X-ray: Report Reviewed Assessment/Plan afebrile neutropenia improved C diff colitis diarrhoea improved megacolon cholangiocarcinoma HTN PLAN continue antibiotics flagyl discontinued Continue IV fluid and pain meds pt is on neupogen GI f/u and ID f/u Monitor CBC and CMP
[2017-12-03] MEDS ORDERED: MAGNESIUM OXIDE 400 MG TABLET (FP) PO ONE (10:01)
[2017-12-03] MEDS: HYDROmorphone HCL CARPU-JECT 2 MG/1 ML DISP.SYRIN IVPUSH PRN ×2 (10:47→17:00)
--- NOTE | 2017-12-03 12:02 | PN ---
Progress Note (short form) - Note Progress Note: Patient seen and examined. Events noted feels better than yesterday, diarrhea was less frequent, abd pain improving O/E: Constitutional: Yes: No Distress, Calm Eyes: Yes: Conjunctiva Clear, EOM Intact HENT: Yes: Atraumatic, Normocephalic Neck: Yes: Supple, Trachea Midline Cardiovascular: Yes: Tachycardia Respiratory: Yes: Regular, CTA Bilaterally Gastrointestinal: Yes: Normal Bowel Sounds, Soft, Abdomen, Obese Extremities: Yes: WNL Edema: No Last Vital Signs Temp Pulse Resp BP Pulse Ox 98.2 F 95 H 20 109/68 100 12/03/17 09:00 12/03/17 09:00 12/03/17 09:00 12/03/17 09:00 12/03/17 09:00 CBC, BMP 12/03/17 07:00 12/03/17 08:15 Current Medications Generic Name Dose Route Start Last Admin Trade Name Freq PRN Reason Stop Dose Admin Acetaminophen 325 mg 12/01/17 18:17 Tylenol - PO Q6H PRN FEVER Atenolol 25 mg 11/30/17 10:00 12/03/17 09:47 Tenormin - PO Not Given DAILY DULCE MARIA Hydromorphone HCl 1 mg 11/30/17 10:07 12/03/17 10:47 Dilaudid Injection - IVPUSH 1 mg Q6H PRN Administration PAIN Sodium Chloride 1,000 mls @ 83 mls/hr 12/01/17 18:30 12/02/17 21:50 Normal Saline - IV 83 mls/hr ASDIR DULCE MARIA Administration Piperacillin Sod/Tazobactam 100 mls @ 200 mls/hr 12/02/17 03:00 12/03/17 09: 47 Sod 4.5 gm/ Dextrose IVPB 200 mls/hr Q8H-IV DULCE MARIA Administration Ranitidine HCl 150 mg 12/04/17 10:00 Zantac - PO DAILY DULCE MARIA Vancomycin HCl 125 mg 11/30/17 12:00 12/03/17 11:38 Vancomycin Oral Solution PO 125 mg Q6HPO DULCE MARIA Administration Neutropenic sepsis in the setting of [place]/Ox being received for Cholangiocarcinoma, follows at [facility]. stop Granix. abx per ID GI f/u noted d/w family. Problem List - Problems (1) Cholangiocarcinoma Code(s): C22.1 - INTRAHEPATIC BILE DUCT CARCINOMA (2) Colitis Code(s): K52.9 - NONINFECTIVE GASTROENTERITIS AND COLITIS, UNSPECIFIED (3) Dehydration Code(s): E86.0 - DEHYDRATION (4) Tachycardia Code(s): R00.0 - TACHYCARDIA, UNSPECIFIED (5) Neutropenia Code(s): D70.9 - NEUTROPENIA, UNSPECIFIED (6) Neutropenia Code(s): D70.9 - NEUTROPENIA, UNSPECIFIED Qualifiers: Neutropenia type: secondary to cancer chemotherapy Qualified Code(s): D70.1 - Agranulocytosis secondary to cancer chemotherapy; T45.1X5A - Adverse effect of antineoplastic and immunosuppressive drugs, initial encounter; T45.1X5A - Adverse effect of antineoplastic and immunosuppressive drugs, initial encounter
[2017-12-03 13:03] LABS: PLATELET ESTIMATE ADEQUATE
[2017-12-03] MEDS: ONDANSETRON 4 MG/2 ML VIAL IVPB PRN (21:48)
[2017-12-03] MEDS ORDERED: HYDROmorphone HCL CARPU-JECT 2 MG/1 ML DISP.SYRIN IVPB ONE (22:00)
[2017-12-03] MEDS: SODIUM CHLORIDE 1,000 ML IV SCH (23:11)
[2017-12-04] MEDS: VANCOMYCIN 250 MG/5 ML ORAL SOLUTION PO SCH ×3 (00:15→12:00)
[2017-12-04] MEDS ORDERED: IBUPROFEN 800 MG/8 ML IJ IVPB ONE (00:49)
--- NOTE | 2017-12-04 00:57 | HOSP ---
Subjective - Review of Symptoms Events since last encounter: Was called to see pt because of fever and tachycardia. On exam, pt denies any symptoms. States he is making formed stools. Denies CP, SOB, abd pain, cough, nausea, vomiting. PE -AAOx3 -NCAT, EOMI -Cardiac: Tachycardic, S1, S2 w/out murmur/rub/gallop -Lungs: CTA b/l -ABD: soft, nontender, rasheed neg, no organomegally appreciated, implanted chemo pump in LLQ -Distal pulses 2+. No pedal edema BP 118/65, HR 115, temp 103F No longer neutropenic. Now has leukocytosis 14.8 Pt has been vasquez cultured yesterday and is on Vanc/Zosyn. Plan -Tachycardia likely 2/2 fever. -Motrin -increase NS to 125 -reassess Physical Examination Vital Signs: Vital Signs Temperature 102.8 F H 12/03/17 23:17 Pulse Rate 135 H 12/03/17 23:17 Respiratory Rate 18 12/03/17 23:17 Blood Pressure 147/85 12/03/17 23:17 O2 Sat by Pulse Oximetry (%) 100 12/03/17 20:25 Labs: CBC, BMP 12/03/17 07:00 12/03/17 08:15 Visit type - Emergency Visit Emergency Visit: No - New Patient This patient is new to me today: Yes Date on this admission: 12/04/17 - Critical Care Critical Care patient: No
[2017-12-04] MEDS: ONDANSETRON 4 MG/2 ML VIAL IVPB PRN (01:29)
[2017-12-04] MEDS: PIPERACILLIN/TAZOB 4.5 GM 4.5 GM in DEXTROSE 5%-WATER - 100 ML IVPB SCH ×2 (01:33→10:29)
[2017-12-04] MEDS: SODIUM CHLORIDE 1,000 ML IV SCH ×2 (01:36→08:23)
[2017-12-04] MEDS: HYDROmorphone HCL CARPU-JECT 2 MG/1 ML DISP.SYRIN IVPUSH PRN (07:01)
[2017-12-04 07:39] LABS: HEMOGLOBIN 10.4 GM/dL (11.7-16.9); MCH 30.6 pg (25.7-33.7); MCHC 32.4 g/dl (32.0-35.9); MEAN CELL VOLUME 94.4 fl (80-96); MEAN PLT VOLUME 7.5 fl (7.5-11.1); PLATELET COUNT 189 K/MM3 (134-434); RBC 3.39 M/mm3 (4.00-5.60); RDW 22.7 % (11.9-15.9); WHITE BLOOD COUNT 10.8 K/mm3 (4.0-10.0)
[2017-12-04 08:03] LABS: ALBUMIN 1.6 g/dl (3.4-5.0); ANION GAP 8 (8-16); CHLORIDE 105 mmol/L (98-107); CO2 28 mmol/L (21-32); POTASSIUM 3.2 mmol/L (3.5-5.1); SODIUM 141 mmol/L (136-145)
[2017-12-04 08:09] LABS: ALK PHOS 118 U/L (45-117); BILIRUBIN,TOTAL 0.7 mg/dL (0.2-1.0); BLOOD UREA NITROGEN 3 mg/dL (7-18); CREATININE 0.7 mg/dL (0.7-1.3); GLUCOSE,RANDOM 94 mg/dL (74-106); SGOT/AST 46 U/L (15-37); SGPT/ALT 31 U/L (12-78); TOT PROT 4.6 g/dl (6.4-8.2)
[2017-12-04 09:12] LABS: MAGNESIUM 1.3 mg/dL (1.8-2.4)
[2017-12-04 09:17] LABS: LIPASE 275 U/L (73-393)
--- NOTE | 2017-12-04 09:36 | PN ---
Progress Note (short form) - Note Progress Note: febrile to 103.5 overnight-shivering vomiting times two now with lower abdominal pain had formed stools yesterday, now reports blood in stools (not seen by nursing staff)-this am no further bm required pain meds overnight and again this am no fever this am no sob, no cough, no urinary complaints stat blood culture ordered overnight- family refused stat ct scan ordered- has inflammation of the terminal ileum with mesenteric inflammation d/w Dr Yarbrough- appendix is visualized and is not inflamed Vital Signs Period Temp Pulse Resp BP Sys/Forman Pulse Ox Last 24 Hr 97.8 F-102.8 F 97-135 16-20 103-147/65-85 100 alert, NAD no thrush cor-rrr lungs clear abd soft, +BS, +rlq tenderness to palpation, no midepigastric pain on palpation ext no edema CBC, BMP 12/04/17 06:30 12/04/17 06:30 Microbiology 12/01/17 22:00 Blood - Peripheral Venous Blood Culture - Preliminary NO GROWTH OBTAINED AFTER 48 HOURS, INCUBATION TO CONTINUE FOR 3 DAYS. 12/01/17 21:45 Blood - Peripheral Venous Blood Culture - Preliminary NO GROWTH OBTAINED AFTER 48 HOURS, INCUBATION TO CONTINUE FOR 3 DAYS. 11/30/17 15:02 Blood - Peripheral Venous Blood Culture - Preliminary NO GROWTH OBTAINED AFTER 72 HOURS, INCUBATION TO CONTINUE FOR 2 DAYS. 11/30/17 15:02 Blood - Peripheral Venous Blood Culture - Preliminary NO GROWTH OBTAINED AFTER 72 HOURS, INCUBATION TO CONTINUE FOR 2 DAYS. 12/02/17 16:45 Stool Cryptosporidium Antigen - Final 12/02/17 16:45 Stool Giardia Antigen (CLARIBEL) - Final 11/30/17 18:50 Stool Gram Stain - Final 11/30/17 18:50 Stool Salmonella/Shigella Culture - Final NO GROWTH OF SALMONELLA OR SHIGELLA SPECIES OBTAINED 11/30/17 18:50 Stool Campylobacter Culture - Final NO GROWTH OF CAMPYLOBACTER SPECIES OBTAINED 11/30/17 18:50 Stool Yersinia Culture - Final 11/30/17 18:50 Stool Vibrio Culture - Final NO GROWTH OF VIBRIO SPECIES OBTAINED 11/30/17 18:50 Stool Escherichia coli 0157 Culture - Final 11/29/17 10:45 Stool Clostridium difficile Antigen (CLARIBEL) - Final 11/29/17 10:45 Stool Clostridium difficile Toxin Assay - Final 11/29/17 21:45 Nasopharyngeal Swab Influenza Types A,B Antigen (CLARIBEL) - Final 11/29/17 21:45 Nasopharyngeal Swab - Final a/p fever with abdominal pain- ct scan with terminal ileitis- suggest GI f/u-broad differential including infection, ?chemo, malignancy, inflammation could chemo have unmasked a more chronic process? 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
--- NOTE | 2017-12-04 09:51 | PN ---
GI Progress Note Subjective: Events overnight noted. Vomiting occurred. Mr. Garcia's also reports that he had a watery BM last night along with a loose bloody BM this morning. Had fever spike as well to 102.8 last night. Pain occurred again, this time not in the epigastrium/mid abdomen, which was his initial complaint, but in the right lower abdomen. Pain is improved this morning however he received dilaudid this morning. Non-contrast CT scan was agreed upon last night. Contrast imaging has been deferred by family previously. I reviewed images and discussed with Dr. Rahman who had the CT scan reviewed by radiologist Dr. Yarbrough. Inflammatory changes / non-specific enteritis noted in the right lower quadrant. The appendix was described as normal by Dr. Yarbrough. Blood cultures were refused by family last night. Transfer to [facility] [place] [facility] was refused by family earlier in week. - Objective Vital Signs: Vital Signs Temperature 97.9 F 12/04/17 09:27 Pulse Rate 108 H 12/04/17 09:27 Respiratory Rate 16 12/04/17 09:27 Blood Pressure 125/80 12/04/17 09:27 O2 Sat by Pulse Oximetry (%) 100 12/03/17 20:25 Constitutional: Calm Eyes: No: Sclera Icterus Cardiovascular: Yes: Tachycardia Respiratory: Yes: CTA Bilaterally Gastrointestinal Inspection: No: Distention ...Auscultate: Yes: Normoactive Bowel Sounds ...Palpate: Yes: Soft, Tenderness (Mild TTP in the RLQ). No: Guarding, Tenderness, Rebound ...Percussion: No: Tympanitic Edema: No (No LE edema) Neurological: Yes: Alert Labs: CBC, BMP 12/04/17 06:30 12/04/17 06:30 - ....Imaging Cat Scan: Report Reviewed, Image Reviewed Problem List - Problems (1) Diarrhea Assessment/Plan: Bloody diarrhea has occurred now along with continued fever spikes. CT scan revealed ileitis, similar in location that his initial CT scan had revealed however ? if it has progressed. With 3 weeks or so of symptoms, I question if this is more of a subacute than acute process such as mesenteric ischemia. C. DIff can affect small bowel however he is on continued treatment for C. DIff with PO vanco ? if this is a chemo induced enteritis. Atypical infection needs to be excluded as well. Advise the following for now: - NPO with IV hydration with monitoring - Ordered lactic acid level - Further stool studies ordered: AFB culture/smear, Microsporidia/isospora - Continue PO Vanco - To have surgery on board, advised surgical consultation - Abx are being managed by ID - Transfer to his tertiary care center advised as well. This had been discussed previously and declined by family. It is again being discussed with family and Dr. Rios. Case D/W Dr. 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
--- NOTE | 2017-12-04 09:57 | PN ---
Progress Note, Physician Chief Complaint: pt lyiing in bed,c/o mild abdominal pain pt spiked fever last night 102.2,had 2 loose bowel movement last night as per pt noticed blood in the stool pt got motrin last night Pt had ct abdomen without contrast and shows nonspecefic enteritis and no tntraabdomina abcess or evidence of infection Pt is on flagyl,zosyn and vanco - Current Medication List Current Medications: Active Medications Acetaminophen (Tylenol -) 325 mg PO Q6H PRN PRN Reason: FEVER Last Admin: 12/03/17 23:10 Dose: 325 mg Atenolol (Tenormin -) 25 mg PO DAILY DULCE MARIA Last Admin: 12/03/17 09:47 Dose: Not Given Hydromorphone HCl (Dilaudid Injection -) 1 mg IVPUSH Q6H PRN PRN Reason: PAIN Last Admin: 12/04/17 07:01 Dose: 1 mg Piperacillin Sod/Tazobactam (Sod 4.5 gm/ Dextrose) 100 mls @ 200 mls/hr IVPB Q8H-IV DULCE MARIA Last Admin: 12/04/17 01:33 Dose: 200 mls/hr Sodium Chloride (Normal Saline -) 1,000 mls @ 125 mls/hr IV ASDIR DULCE MARIA Last Admin: 12/04/17 08:23 Dose: 125 mls/hr Metronidazole (Flagyl 500mg Premixed Ivpb -) 500 mg in 100 mls @ 100 mls/hr IVPB Q8H-IV DULCE MARIA Last Admin: 12/04/17 03:10 Dose: 100 mls/hr Ondansetron HCl (Zofran Injection) 4 mg IVPB Q4H PRN PRN Reason: NAUSEA AND/OR VOMITING Last Admin: 12/04/17 01:29 Dose: 4 mg Ranitidine HCl (Zantac -) 150 mg PO DAILY DULCE MARIA Vancomycin HCl (Vancomycin Oral Solution) 125 mg PO Q6HPO DULCE MARIA Last Admin: 12/04/17 06:42 Dose: Not Given - Objective Vital Signs: Vital Signs Temperature 97.9 F 12/04/17 09:27 Pulse Rate 108 H 12/04/17 09:27 Respiratory Rate 16 12/04/17 09:27 Blood Pressure 125/80 12/04/17 09:27 O2 Sat by Pulse Oximetry (%) 100 12/03/17 20:25 Constitutional: Yes: No Distress Eyes: Yes: Conjunctiva Clear HENT: Yes: Atraumatic Neck: Yes: Supple Cardiovascular: Yes: Regular Rate and Rhythm Respiratory: Yes: Regular Gastrointestinal: Yes: Normal Bowel Sounds, Soft Musculoskeletal: Yes: WNL Extremities: Yes: WNL Edema: No Peripheral Pulses WNL: Yes Neurological: Yes: WNL, Alert ...Motor Strength: WNL Psychiatric: Yes: WNL Labs: CBC, BMP 12/04/17 06:30 12/04/17 06:30 - ....Imaging Cat Scan: Report Reviewed Assessment/Plan afebrile neutropenia improved C diff colitis diarrhoea improved nonspecific enteritis cholangiocarcinoma HTN PLAN continue antibiotics Continue IV fluid and pain meds fungal cultu GI f/u and ID f/u Monitor CBC and CMP keep NPO MG and K suppliment
[2017-12-04] MEDS ORDERED: RANITIDINE HCL 150 MG TABLET (FP) PO SCH (10:00)
[2017-12-04 10:08] LABS: PLATELET ESTIMATE ADEQUATE
[2017-12-04] MEDS ORDERED: MAGNESIUM SULFATE IN WATER 2 GM/50 ML IVPB IVPB ONE (10:10)
[2017-12-04] MEDS ORDERED: KCL 10 MEQ IVPB 10 MEQ/100 ML INFUS.BAG IVPB SCH (10:15)
[2017-12-04] MEDS: ATENOLOL 25 MG TABLET (FP) PO SCH (10:38)
[2017-12-04] MEDS ORDERED: POTASSIUM CHLORIDE ORAL LIQUID 20 MEQ/15 ML PO ONE (13:00)
[2017-12-04] MEDS: POTASSIUM CHLORIDE 10 MEQ in SODIUM CHLORIDE 100 ML IVPB SCH (13:13)
[2017-12-04 14:22] VITALS: BP 124/78; PULSE 104; TEMP 97.8
--- NOTE | 2017-12-07 20:16 | DS ---
Physical Examination Vital Signs: Vital Signs Temperature 97.8 F 12/04/17 13:00 Pulse Rate 104 H 12/04/17 13:00 Respiratory Rate 16 12/04/17 13:00 Blood Pressure 124/78 12/04/17 13:00 O2 Sat by Pulse Oximetry (%) 100 12/04/17 09:00 Labs: CBC, BMP 12/04/17 06:30 12/04/17 06:30 Discharge Summary Reason For Visit: COLITIS CHOLANGIOCARCINOMA (SHORT STAY) Hospital Course: 72 yr old with h/o cholangiocarcinoma on CT,HTN getting treament from [facility] came to the ER with c/o abdominal pain and diarrhoea. Pt had diarrhoea for few weeks and diagnosed to have C diff colitis and got flagyl,but no improvement,so started on PO vanco from [place].PT HAD ct OF ABDOMEN WITH CONTRAST AT [place] ,NO EVIDENCE OF OBSTRUCTION,AFTER THAT PT DEVEOPED SEVERE ABDOMINAL PAIN Because of Increasing abd pain and diarrhoea and tachycardia pt came to the ER Pt was given IV fluid And Pain meds While Pt was in the ER pt spiked FEVER ,So pt admitted in the floor,vitals in the ER at the time of visit,temp 98.6,NH 112,BP 117/78 ,resp 20 and sat98% At the time of Admissiomn EKG,CHEST X ray were NL WBC was 3,CMP was NL PT WAS GIVEN vANCOMYCIN AND zOSYN.Pt spiked fever multiple times during hospitalisation pt had neutropenia while hospitalisATION,SO HEMATOLOGY CONSULT DONE, AND 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,AND NEUTROPENIA IMPROVED Blood culture was negative,Stool studies were negative and stool c diff antigen and toxin were negative pT HAD abdominal X ray shows mild ILEUS Mild ileus Ct of abdomen without contrast done,no evidence of Obstruction,no free air.Mild terminal ileits and hypodense rt liver lobe [place] Pt was trated with vanco,falgyl and zosyn pt was follwed by GI,hematology AND ID.Pt was stable during Hospitalisation Family, wants to transfer the pt to [facility],as per he is getting the treatment from [facility].,and for cotinuity of care Since no bed available at [facility],pt signed OUT AMA and taken the PT to [facility] ER.Pt was stable , Condition: Improved - Instructions Referrals: Mihai Elkins [Primary Care Provider] - Disposition: AGAINST MEDICAL ADVICE - Home Medications Comprehensive Discharge Medication List: Ambulatory Orders Atenolol [Tenormin] 25 mg PO DAILY 07/29/17 Oxycodone HCl [Oxycodone HCl ER] 10 mg PO BID #6 tab.er.12h MDD 2 07/29/17 Pantoprazole Sodium [Protonix] 40 mg PO DAILY 11/29/17 Sodium Chloride [Sodium Chloride 0.9% 1000 ml Infus.bag] 1,000 ml IV ONCE #1 infus.bag 11/30/17
== END 2017-12-04 14:18 | disposition left against medical advice (07) | DRG 371 ==
LOC: JER 20:03 → JERBED 11-30 01:02 → J7W 11-30 15:15 → OBSVTOIN 12-01 07:31
PROVIDERS: ADMIT Family Medicine; ATTEND Family Medicine
DX: A04.72 Enterocolitis due to Clostridium difficile, not specified as recurrent (principal); A41.9 Sepsis, unspecified organism; C22.1 Intrahepatic bile duct carcinoma; I10 Essential (primary) hypertension; R00.0 Tachycardia, unspecified; E86.0 Dehydration; D70.1 Agranulocytosis secondary to cancer chemotherapy
CPT/HCPCS: 36415; 71045-TC-FY; 74018-TC-FY; 74176-TC; 76700-TC; 80053; 81003; 83605; 83690; 83735; 85025; 87040; 87045; 87046; 87102; 87177; 87186; 87205; 87209; 87210; 87324; 87328; 87329; 87449; 87798; 87804; 93005; 93010; 99285-25; G0378; J1447